=== PATIENT | male | born 1965 | race Caucasian/White ===

== ENCOUNTER 2021-04-17 05:43 | Observation (INO) ==
--- NOTE | 2021-03-31 16:25 | PAT Medication Instructions ---
Medication Instructions Date of Service March 31, 2021 Home Medications Ca carb-Ca gluc-Mg ox-Mg gluco [Calcium Magnesium] 1 tab PO HS ascorbic acid (vitamin C) [Vitamin C] 500 mg PO QAM diltiazem HCl 240 mg PO QAM gabapentin 100 mg PO HS glipizide 5 mg PO QAM lisinopril 20 mg PO QAM metformin 1,000 mg PO BID multivitamin 1 tab PO QAM omeprazole 20 mg PO QAM rosuvastatin 10 mg PO HS DO NOT take the morning of surgery ascorbic acid (vitamin C) [Vitamin C] 500 mg PO QAM glipizide 5 mg PO QAM lisinopril 20 mg PO QAM metformin 1,000 mg PO BID multivitamin 1 tab PO QAM Take morning of surgery With a small sip of water, OTHERWISE NOTHING TO EAT OR DRINK AFTER MIDNIGHT: diltiazem HCl 240 mg PO QAM omeprazole 20 mg PO QAM Take evening before surgery Ca carb-Ca gluc-Mg ox-Mg gluco [Calcium Magnesium] 1 tab PO HS gabapentin 100 mg PO HS metformin 1,000 mg PO BID rosuvastatin 10 mg PO HS Other Notes If you have any questions please call us at [phone] or [phone] or [phone] or [phone]
--- NOTE | 2021-04-03 14:48 | Anesthesiology Consultation ---
Date of Service April 03, 2021 Assessment & Plan (1) Encounter for pre-operative examination: - Cardiology note (04/04/21): "intermediate cardiac risk" - COVID screening: Per assessment on 04/03: Travel screen negative, no known COVID-19 positive contacts or current COVID-19 related symptoms. Surgeon arranging preop COVID testing. Awaiting results. - Check [facility] AM DOS Chart Review Chart Review: Acceptable Risk for Surgery (pending evaluation AM DOS) and Patient seen in Pre Admission Testing Teaching & Discussion Pre-Anesthesia Teaching/Discussion Notes: Instructed NPO after midnight before surgery,except medications with 15 cc of water. Medication instructions provided according to the PAT guidelines. History Surgery Operation Date: 04/17/21 13:40 Proposed Procedures p C5-C7 Anterior Cervical Discectomy and Fusion, *Spinal Cord Monitoring* - John Sterling DO Height/Weight Height: 5 ft 9 in Weight: 119.7 kg Allergies Allergy/AdvReac Type Severity Reaction Status Date / Time No Known Allergies Allergy Verified 03/30/21 08:43 Medications Home Medications Medication Instructions Recorded Confirmed Last Taken Ca carb-Ca gluc-Mg ox-Mg gluco 1 tab PO HS 03/30/21 03/30/21 Unknown [Calcium Magnesium] ascorbic acid (vitamin C) [Vitamin 500 mg PO QAM 03/30/21 03/30/21 Unknown C] diltiazem HCl 240 mg PO QAM 03/30/21 03/30/21 Unknown gabapentin 100 mg PO HS 03/30/21 03/30/21 Unknown glipizide 5 mg PO QAM 03/30/21 03/30/21 Unknown lisinopril 20 mg PO QAM 03/30/21 03/30/21 Unknown metformin 1,000 mg PO BID 03/30/21 03/30/21 Unknown multivitamin 1 tab PO QAM 03/30/21 03/30/21 Unknown omeprazole 20 mg PO QAM 03/30/21 03/30/21 Unknown rosuvastatin 10 mg PO HS 03/30/21 03/30/21 Unknown Past Medical History Medical History Cervical spinal stenosis Diabetes mellitus, type 2 NIDDM Fatty liver GERD (gastroesophageal reflux disease) History of COVID-19 09/16 (congestion) > resolved Hyperlipidemia Hypertension Irregular heart beat Follows with [facility] Obesity Restless leg syndrome Sleep apnea CPAP Exercise / Class Metabolic Activity II 4-5 Yardwork/Stairs/Walk up hill Past Family History Family History Mother Family history of diabetes mellitus Brother Family history of diabetes mellitus Other No family history of adverse response to anesthesia Past Surgical History Surgical History H/O shoulder surgery Right History of arthroscopy Left knee History of cholecystectomy History of colonoscopy History of herniorrhaphy Inguinal History of surgery on arm Left bicep repair [place] teeth removed Past Anesthesia History No Hx of Anesthesia Complications (except PONV) and No Family Hx of Anesthesia Complications History of PONV No Hx of Motion Sickness and History of PONV STOP BANG Total 7 Social History Smoking Status: Never smoker Do You Dip or Chew Tobacco: No Hx Alcohol Use: No Hx Substance Use: No substance use type: does not use Review of Systems Patient denies chest pain, shortness of breath, dyspnea on exertion, fever, chills, cough, wheezing, palpitations. Physical Exam Vital Signs VITALS BP 118/73 P 71 TEMP SP02 95%RA RESP 16 PHYSICAL Full cervical extension range of motion (+ cervicalgia with extension). Full TMJ range of motion. TMD 4 finger breaths Mallampati Score 2 Dentition: intact, + cap Lungs: clear throughout to auscultation Cardiac: regular rate and rhythm, no murmurs noted Spine: normal Carotid arteries: negative bruit Extremities: no edema Lab Results Anesthesia Preop Results Results Anesthesia Widget: WBC 8.18 K/uL (4.8-10.8) 04/03/21 Hgb 15.4 g/dL (14.0-18.0) 04/03/21 Hct 44.0 % (42-52) 04/03/21 Plt 237 K/uL (130-400) 04/03/21 Na 139 mmol/L (136-145) 04/03/21 K 4.4 mmol/L (3.5-5.1) 04/03/21 Cl 106 mmol/L (98-107) 04/03/21 CO2 26 mmol/L (21-32) 04/03/21 BUN 17 mg/dl (7-18) 04/03/21 Creat 1.25 mg/dl (0.6-1.4) 04/03/21 Glucose Level 86 mg/dl (70-99) 04/03/21 PT 10.4 Seconds (9.0-12.0) 04/03/21 PTT 25.9 Seconds (21.0-31.0) 04/03/21 INR 1.0 (0.9-1.1) 04/03/21 HA1c 7.3 % (4.5-5.6) H 04/03/21 Urine Color Yellow 04/03/21 Urine Appearance Clear (Clear) 04/03/21 Urine pH 6.5 (4.5-7.5) 04/03/21 Urine Specific [place] 1.016 (1.000-1.030) 04/03/21 Urine Protein Negative (Negative) 04/03/21 Urine Glucose (UA) Negative (Negative) 04/03/21 Urine Ketones Negative (Negative) 04/03/21 Urine Blood Negative (Negative) 04/03/21 Urine Nitrite Negative (Negative) 04/03/21 Urine Bilirubin Negative (Negative) 04/03/21 Urine Urobilinogen Negative (Negative) 04/03/21 Urine Leukocyte Esterase Negative (Negative) 04/03/21 Blood Type B Positive 04/03/21 Antibody Screen NEGATIVE 04/03/21 Testing Electrocardiogram Date: 04/03/21 Normal sinus rhythm at 73 bpm. Rightward axis. Chest X-Ray Date: 04/03/21 FINDINGS: Cardiomediastinal and hilar silhouettes are within normal limits. No pneumothorax, pleural effusion, airspace consolidation or overt pulmonary edema. Prior resection of the distal right clavicle. Cholecystectomy. Nipple shadows project over the lung bases. IMPRESSION: No acute process. Echocardiogram Date: 11/26/19 EF 60%. No regional wall motion abnormality. Mild biatrial enlargement. Mild RVE. Mild AV sclerosis. Mild mitral valve thickening. PASP 26 to 31 mmHg. Grade 1 diastolic dysfunction. Stress Test Date: 11/26/19 Type: nuclear (Lexiscan) Based upon EKG criteria, this test is negative. Based upon nuclear imaging findings there is mild inferior wall ischemia. EF 70%. Per cardiology note 01/12/20, nuclear stress test reviewed. Reviewed options with patient and patient preferred medical management at that time. Patient subsequently had preop cardiac risk assessment in which cardiology classified patient as "intermediate cardiac risk" per 04/04/21 note. Patient reports good functional status and denies cardiopulmonary complaints at PAT visit 04/03/21*
[2021-04-17] MEDS ORDERED: ceFAZolin 2000MG 2,000 MG/15 ML SYR IV SCH (06:00)
[2021-04-17] MEDS ORDERED: ACETAMINOPHEN 500 MG TAB PO SCH (06:00)
[2021-04-17] MEDS ORDERED: LR 15ML/HR IV SCH (06:00)
[2021-04-17] MEDS ORDERED: CeleBREX 200 MG CAP PO SCH (06:00)
[2021-04-17] MEDS ORDERED: GABAPENTIN 600 MG DOSE PO SCH (06:00)
[2021-04-17] MEDS ORDERED: ATROPINE SULFATE 0.1 MG/ML 10ML SYR IV PRN (07:07)
[2021-04-17] MEDS ORDERED: ONDANSETRON INJ 2 MG/ML 2 ML VIAL IV PRN ×2 (07:07→11:10)
[2021-04-17] MEDS ORDERED: ePHEDrine sulfate 50 MG/ML AMP IV PRN (07:07)
[2021-04-17] MEDS ORDERED: fentaNYL citrate 100 MCG/2 ML VIAL IV PRN (07:07)
[2021-04-17] MEDS ORDERED: SCOPOLAMINE 1 MG TDSY TD ONE ×2 (07:09→07:13)
--- NOTE | 2021-04-17 07:23 | History & Physical Bridge Note ---
Date of Service April 17, 2021 History & Physical Bridge Note I have examined the patient, reviewed the History & Physical and in the interval since the performance of the History & Physical I have noted the following changes of clinical significance: no changes noted
--- NOTE | 2021-04-17 07:25 | History & Physical Report ---
Date of Service April 17, 2021 Assessment & Plan (1) Herniation of cervical intervertebral disc with radiculopathy: Admission and Anticipated Discharge Date Admission Date: C5-C7 anterior cervical discectomy and fusion History of Present Illness Chief Complaint: Neck and arm pain Primary Care Provider: Jame Guzmán This is a 55-year-old male who presents with chronic persistent neck and arm pain. After failing stents course of nonoperative care is here for surgical invention. Allergies Allergy/AdvReac Type Severity Reaction Status Date / Time No Known Allergies Allergy Verified 04/17/21 07:00 Home Medications Medication Instructions Recorded Confirmed Type Ca carb-Ca gluc-Mg ox-Mg gluco 1 tab PO HS 03/30/21 04/17/21 History [Calcium Magnesium] ascorbic acid (vitamin C) [Vitamin 500 mg PO QAM 03/30/21 04/17/21 History C] diltiazem HCl 240 mg PO QAM 03/30/21 04/17/21 History gabapentin 100 mg PO HS 03/30/21 04/17/21 History glipizide 5 mg PO QAM 03/30/21 04/17/21 History lisinopril 20 mg PO QAM 03/30/21 04/17/21 History metformin 1,000 mg PO BID 03/30/21 04/17/21 History multivitamin 1 tab PO QAM 03/30/21 04/17/21 History omeprazole 20 mg PO QAM 03/30/21 04/17/21 History rosuvastatin 10 mg PO HS 03/30/21 04/17/21 History Past Med/Surg History Medical History Cervical spinal stenosis Diabetes mellitus, type 2 NIDDM Fatty liver GERD (gastroesophageal reflux disease) History of COVID-19 09/16 (congestion) > resolved Hyperlipidemia Hypertension Irregular heart beat Follows with [facility] Obesity Restless leg syndrome Sleep apnea CPAP Surgical History H/O shoulder surgery Right History of arthroscopy Left knee History of cholecystectomy History of colonoscopy History of herniorrhaphy Inguinal History of surgery on arm Left bicep repair Stites teeth removed Family History Mother Family history of diabetes mellitus Brother Family history of diabetes mellitus Other No family history of adverse response to anesthesia Social History Smoking Status: Never smoker Second Hand Exposure: No; Do You Dip or Chew Tobacco: No; Hx Alcohol Use: No Hx Substance Use: No Preferred Language: Peruvian Control Manager Required: No Beliefs That Will Affect Care: None Current Living Situation: Spouse Feels Safe at Home: Yes Safety Concerns: Feels Safe At This Time Assistive Devices: CPAP and Glasses Physical Exam Physical Exam: Patient is alert and oriented Heart regular rhythm Lungs clear to auscultation Results & Data ([facility]) Vital Signs (Past 12 Hours) Vital Signs Temp Pulse Resp BP Pulse Ox 04/17/21 06:49 36.8 C 87 18 146/84 H 94
[2021-04-17] MEDS ORDERED: fentaNYL citrate 100 MCG/2 ML VIAL ONE ×2 (07:33→08:03)
[2021-04-17] MEDS ORDERED: GLYCOPYRROLATE 0.2 MG/ML VIAL ONE ×2 (07:33→08:59)
[2021-04-17] MEDS ORDERED: HYDROmorphone INJ 2 MG/ML SYR/VIAL ONE (07:33)
[2021-04-17] MEDS ORDERED: DEXAMETHASONE SOD INJ 4 MG/ML VIAL ONE (07:33)
[2021-04-17] MEDS ORDERED: LIDOCAINE 2% 2 ML VIAL/AMP(20MG/ML) INFIL ONE (07:33)
[2021-04-17] MEDS ORDERED: PROPOFOL IV EMULSION 10 MG/ML 20 ML VIAL IV ONE (07:33)
[2021-04-17] MEDS ORDERED: NEOSTIGMINE METHYLSULFATE 1 MG/ML 10ML VIAL ONE (07:33)
[2021-04-17] MEDS ORDERED: ONDANSETRON INJ 2 MG/ML 2 ML VIAL ONE ×2 (07:33→08:58)
[2021-04-17] MEDS ORDERED: MIDAZOLAM HCL 1 MG/ML 2ML VIAL ONE (07:33)
[2021-04-17] MEDS ORDERED: ROCURONIUM BROMIDE 10 MG/ML 5 ML VIAL IV ONE (08:36)
[2021-04-17] MEDS ORDERED: PHENYLEPHRINE 100MCG/ML 5ML SYR ONE (08:36)
[2021-04-17] MEDS ORDERED: SUCCINYLCHOLINE CHLORIDE 20 MG/ML 10 ML VIAL IV ONE (08:36)
[2021-04-17] MEDS ORDERED: LARYING-O-JET KIT (LTA) ONE (08:36)
[2021-04-17] MEDS ORDERED: FLOSEAL HEMOSTATIC MATRIX 10ML TOP ONE (08:52)
[2021-04-17] MEDS ORDERED: PROPOFOL IV EMULSION 10 MG/ML 100 ML VIAL IV ONE (09:10)
--- NOTE | 2021-04-17 09:27 | Operative Report ---
Post Operative Report Pre & Post Diagnosis Operation Date: 04/17/21 07:45 Pre-Op Diagnosis: Cervical spinal stenosis with radiculopathy Post-Op Diagnosis: Same I identified the patient and participated in the time-out.: Yes Procedure Operation Date: 04/17/21 07:45 Actual Procedures #1 anterior cervical discectomy with bilateral foraminotomies C5-6 and C6-7. #2 intracervical arthrodesis C5-6 and C6-7. #3 placement of 9 mm Spira cage filled with I factor at C5-6 and an 8 mm cage filled with I factor at C6-C7. #4 application of gonzalez plate and screws from C5-C7. Surgeon John Sterling, DO Dehydration Plant Operator Romy Carey Estimated Blood Loss 10 Findings See Below The patient is 5 foot 9 inches tall weighing over 118 kg with a BMI in excess of 38. Patient's body habitus did create significant technical difficulty from positioning to exposure adding at least 50% increase to the operative time. Specimens None Indications This is a 55-year-old male who presents with above-mentioned diagnosis after failing stents course of nonoperative care is here for the above-mentioned procedure. Description of Procedure Patient was met with identified informed consent obtained. Patient was then taken to the operative suite underwent a patient placed in spine position just table head Trammell velazquez. All bony prominences well-padded eyes inspected to ensure no external pressure placed upon the. This point the anterior cervical spine was prepped and draped in a sterile fashion. The assistance of fluoroscopy identified the C6 vertebral body and a transverse incision was placed along the right anterior aspect of the cervical spinal lines region. Sharp dissection with the assistance of bipolar electrocautery as well down to and exposing the anterior cervical spine from C5-C7. Several 10 retractors placed. Then performed a complete discectomy of C5-C6 out to the uncovertebral joints bilaterally. Marland distracting pins were then placed to assist with visualization. I removed all posterior annular fibers longitudinal ligament bilateral foraminotomies performed. I then placed a 9 mm Spira cage filled with I factor into position. Then proceeded to C6-C7. Again complete discectomy performed out to the uncovertebral joints bilaterally. Marland distracting pins again utilized. Removed all posterior annular fibers longitudinal ligament bilateral foraminotomies performed. Endplates were then burred to subcortically bone and a 8 mm spiral cage filled with I factor tapped in position. All anterior osteophytes were then burred to a smooth cortical surface and a 5 complete screws applied with the assistance of fluoroscopy. The incision was then copiously irrigated explored to ensure no damage to surrounding structures remaining bleeding. 10 round MAYI drain inserted. The incision was then closed with 2 Vicryl in a fashion of 4 Monocryl for final skin closure. Steri-Strip sterile dressings placed. Patient waken taken to PACU stable condition. Please note spinal cord monitoring was utilized at the procedure no changes noted. Margarita Carey was present at the entire surgery involved the patient positioning complex portions of the surgery and final skin closure. I attest to the content of the Intraoperative Record and any orders documented therein. Any exceptions are noted below.
--- NOTE | 2021-04-17 10:24 | Fluoroscopy Report ---
FL cervical 2-3V CLINICAL HISTORY: ACDF C5-C7 COMPARISON STUDY: None FLUOROSCOPY TIME: 17 second. NUMBER OF FLUOROSCOPIC IMAGES: 3 FINDINGS: Fluoroscopic images presented for review shows partially visualized cervical spine and placement of t he orthopedic metallic device in its lower region. Endotracheal tube is seen at the anatomical region of the trachea. IMPRESSION: As above. ACT 112: Negative or not required by law. The above report was generated using voice recognition software. It may contain grammatical, syntax o r spelling errors. Electronically signed by: Savita Montes De Oca DO 04/17/2021 10:23 AM
--- NOTE | 2021-04-17 10:34 | Anesthesiology Progress Note ---
Date of Service April 17, 2021 Anesthesia Post Procedure Vital Signs Vital Signs: Temp Pulse Pulse Resp BP Pulse Ox 04/17/21 10:25 75 20 141/83 H 94 04/17/21 10:15 74 12 147/91 H 96 04/17/21 10:05 75 12 138/86 95 04/17/21 09:55 82 12 147/83 H 93 04/17/21 09:47 96.8 F L 96 H 14 135/89 90 04/17/21 06:49 98.2 F 87 18 146/84 H 94 Transfer of Care Handoff Completed per policy Notes Mental Status: alert / awake / arousable and participated in evaluation Patient Amnestic to Procedure: Yes Nausea / Vomiting: adequately controlled Pain: adequately controlled Airway Patency, RR, SpO2: stable & adequate BP & HR: stable & adequate Hydration State: stable & adequate Anesthetic Complications: no major complications apparent and Pt Satisfied with anesthetic care
[2021-04-17] MEDS ORDERED: RACEPINEPHRINE 2.25% NEBU SOLN 0.5 ML VIAL INH PRN (11:10)
[2021-04-17] MEDS ORDERED: LORazepam 0.5 MG/1 ML VIAL IV PRN (11:10)
[2021-04-17] MEDS ORDERED: HYDROmorphone INJ 0.5 MG/0.5 ML SYR IV PRN (11:10)
[2021-04-17] MEDS ORDERED: dexAMETHasone 8 MG in SYRINGE 0 ML IV PRN (11:10)
[2021-04-17] MEDS ORDERED: diphenhydrAMINE Capsule 25 MG CAP PO PRN (11:10)
[2021-04-17] MEDS ORDERED: HYDROmorphone INJ 1 MG/ML SYRINGE IV PRN (11:10)
[2021-04-17] MEDS ORDERED: ONDANSETRON 4 MG OD TAB PO PRN (11:10)
[2021-04-17] MEDS ORDERED: LORazepam 0.5 MG TAB PO PRN (11:10)
[2021-04-17] MEDS ORDERED: METOCLOPRAMIDE HCL INJ 5 MG/ML 2 ML VIAL IV PRN (11:10)
[2021-04-17] MEDS ORDERED: PROMETHAZINE HCL 12.5 MG in SODIUM CHLORIDE 0.9% 50 ML IV PRN (11:10)
[2021-04-17] MEDS ORDERED: traMADol HCL 50 MG TABLET PO PRN (11:10)
[2021-04-17] MEDS ORDERED: FAMOTIDINE 20 MG TAB PO PRN (11:10)
[2021-04-17] MEDS ORDERED: hydrOXYzine HCl 25 MG TAB PO PRN (11:10)
[2021-04-17] MEDS ORDERED: ALUMINUM/MAGNESIUM SUSP 30 ML UDC PO PRN (11:10)
[2021-04-17] MEDS ORDERED: SOD PHOSPHATE/SOD BIPHOSPHATE ENEMA 132 ML BTL PR PRN (11:10)
[2021-04-17] MEDS ORDERED: NALOXONE HCL 0.4 MG/1 ML VIAL/CARP IV PRN (11:10)
[2021-04-17] MEDS ORDERED: ACETAMINOPHEN 1,000 MG/100 ML VIAL IV PRN (11:10)
[2021-04-17] MEDS ORDERED: DO NOT ADMINISTER PNEUMOCOCCAL VACCINE PRN (11:10)
[2021-04-17] MEDS ORDERED: DO NOT ADMINISTER FLU VACCINE PRN (11:10)
[2021-04-17] MEDS ORDERED: MAGNESIUM HYDROXIDE SUSP 30 ML UDC PO PRN (11:10)
[2021-04-17] MEDS: SODIUM CHLORIDE 0.9% 1000ML 1,000 ML IV SCH ×2 (11:42→17:42)
[2021-04-17] MEDS ORDERED: GLUCOSE 40% GEL 15 GM TUBE PO PRN (12:15)
[2021-04-17] MEDS ORDERED: INSULIN ASPART 100 UNITS/ML 3 ML PEN SC ONE (12:15)
[2021-04-17] MEDS ORDERED: GLUCOSE 10 TABS/TUBE PO PRN (12:15)
[2021-04-17] MEDS ORDERED: DEXTROSE 50% 50 ML SYRINGE IV PRN (12:15)
[2021-04-17] MEDS ORDERED: GLUCAGON FOR INJ 1 MG VIAL IM PRN (12:15)
[2021-04-17] MEDS ORDERED: CARBOHYDRATES FOR HYPOGLYCEMIA PO PRN (12:15)
[2021-04-17] MEDS ORDERED: PHARMACY GLYCEMIC MGMT CONSULT PRN (12:40)
[2021-04-17] MEDS ORDERED: NovoLIN-N (NPH) PER UNIT CHARGE SQ ONE (12:45)
[2021-04-17] MEDS: oxyCODONE HCL IR 5 MG TAB (IMMEDIATE RELEASE) PO PRN ×2 (14:42→18:42)
--- NOTE | 2021-04-17 14:42 | Hospitalist Consultation ---
Date of Consultation April 17, 2021 Assessment & Plan (1) Herniation of cervical intervertebral disc with radiculopathy: POD#0 C5-C6, C6-C7 ACDF Mr. Corbett is a 55 year old male with a history of Type 2 Diabetes Mellitus, Hypertension, Hyperlipidemia, Obesity, Restless Leg Syndrome, Sleep Apnea on CPAP, and Cervical Spinal Stenosis s/p ACDF C5-C6, C6-C7 earlier today with Dr. Volodymyr Sterling. [facility] Hospitalists were consulted for post-op medical management. Patient has some pain at the base of his neck with movements, but otherwise his surgical pain is very well controlled. He denies any radiation of discomfort into his arms. He specifically denies any numbness, tingling, or weakness of either upper extremity or his hands. He denies any postoperative nausea or vomiting. He is tolerating the cervical collar without difficulty. Patient offers no other complaints or concerns. Patient is hemodynamically stable following his spine surgery. -- Analgesic for pain control as per Dr. Sterling. -- Ongoing DVT prophylaxis. -- Cervical collar. -- Monitor daily labs. (2) Type 2 diabetes mellitus: -- Monitor G qAC HS. -- Novolog SSI ordered. -- Restart Glipzide and Metformin at discharge. -- Carb consistent, diabetic diet. (3) Hypertension, essential: -- Blood pressure appears to be well controlled. -- Continue Diltiazem CD 240 mg daily. -- Continue Lisinopril 20 mg daily. -- Monitor VS as per protocol. (4) Hyperlipidemia: -- Continue Rosuvastatin 10 mg qHS. (5) Sleep apnea: Patient did not bring his CPAP with him. Supervising Physician Co-Signing Physician Notes Reviewed PA-C notes, discussed at length. I agree with his assessment and plan. This is a 55-year-old female with multiple medical problems that had an ACDF C5-C6 and C6-C7 with Dr. Sterling. Dr. Sterling consult our service for medical management. Medications were reviewed, plan to restart oral hypoglycemics at discharge. Hypertension acceptable on current medications. We will continue to follow blood patient remains here in the hospital. Thank you for the consult. History of Present Illness Reason for Consultation: -- Post-op Medical Management. -- s/p ACDF C5-C6, C6-C7. Requesting Physician: John M Hallie, DO Attending Physician: Martinez Umanzor DO History of Present Illness Mr. Corbett is a 55 year old male with a history of Type 2 Diabetes Mellitus, Hypertension, Hyperlipidemia, Obesity, Restless Leg Syndrome, Sleep Apnea on CPAP, and Cervical Spinal Stenosis s/p ACDF C5-C6, C6-C7 earlier today with Dr. Volodymyr Sterling. [facility] Hospitalists were consulted for post-op medical management. Patient has some pain at the base of his neck with movements, but otherwise his surgical pain is very well controlled. He denies any radiation of discomfort into his arms. He specifically denies any numbness, tingling, or weakness of either upper extremity or his hands. He denies any postoperative nausea or vomiting. He is tolerating the cervical collar without difficulty. Patient offers no other complaints or concerns. Patient specifically denies any history of exertional chest pain, heaviness, tightness, pressure, discomfort. He denies any exertional neck, jaw, back, or arm pain. He denies any shortness of breath, unusual dyspnea on exertion, cough, or sputum production. He denies any recent palpitations. No history of syncope or near-syncope. Patient had an Echocardiogram done a year and a half ago in this showed normal LV size and systolic function, mild aortic valve sclerosis without stenosis, and grade 1 LV diastolic dysfunction. He also had a Nuclear Stress Test 11/26/2019 which showed no EKG changes, but imaging suggested inferior wall ischemia. Allergies Allergy/AdvReac Type Severity Reaction Status Date / Time No Known Allergies Allergy Verified 04/17/21 07:00 Home Medications Medication Instructions Recorded Confirmed Type Ca carb-Ca gluc-Mg ox-Mg gluco 1 tab PO HS 03/30/21 04/17/21 History [Calcium Magnesium] ascorbic acid (vitamin C) [Vitamin 500 mg PO QAM 03/30/21 04/17/21 History C] diltiazem HCl 240 mg PO QAM 03/30/21 04/17/21 History gabapentin 100 mg PO HS 03/30/21 04/17/21 History glipizide 5 mg PO QAM 03/30/21 04/17/21 History lisinopril 20 mg PO QAM 03/30/21 04/17/21 History metformin 1,000 mg PO BID 03/30/21 04/17/21 History multivitamin 1 tab PO QAM 03/30/21 04/17/21 History omeprazole 20 mg PO QAM 03/30/21 04/17/21 History rosuvastatin 10 mg PO HS 03/30/21 04/17/21 History oxycodone 5 mg PO Q6H PRN #20 tab 04/17/21 Rx tramadol 50 mg PO Q6H PRN #20 tab 04/17/21 Rx Patient History Medical History Cervical spinal stenosis Diabetes mellitus, type 2 NIDDM Fatty liver GERD (gastroesophageal reflux disease) History of COVID-19 09/16 (congestion) > resolved Hyperlipidemia Hypertension Irregular heart beat Follows with [facility] Obesity Restless leg syndrome Sleep apnea CPAP Surgical History H/O shoulder surgery Right History of arthroscopy Left knee History of cholecystectomy History of colonoscopy History of herniorrhaphy Inguinal History of surgery on arm Left bicep repair [place] teeth removed Family History Mother Family history of diabetes mellitus Brother Family history of diabetes mellitus Other No family history of adverse response to anesthesia Social History Smoking Status: Never smoker Second Hand Exposure: No; Do You Dip or Chew Tobacco: No; Hx Alcohol Use: No Hx Substance Use: No Preferred Language: Cameroonian Sales Ambassador Required: No Beliefs That Will Affect Care: None Current Living Situation: Spouse Feels Safe at Home: Yes Safety Concerns: Feels Safe At This Time Assistive Devices: CPAP and Glasses Review of Systems Review of Systems: All systems reviewed & are unremarkable except as noted in Subjective Physical Exam Physical Exam: GENERAL: Patient in no acute distress. HEENT: Head is atraumatic, normocephalic. EOM's intact. Facies symmetric. No perioral cyanosis. NECK: Cervical collar in place. CHEST/LUNGS: Clear to auscultation throughout all lung almeida. No wheezes, rales, or crackles. CVS: S1 and S2 are regular without obvious murmurs, gallops, or rubs. PMI is nonpalpable. No lifts, heaves, or thrills. No abdominal aortic or renal bruits. ABDOMINAL EXAM: Bowel sounds are present. No masses, organomegaly, or tenderness. EXTREMITIES: No clubbing or cyanosis. No edema. Intact posterior tibial and radial pulses bilaterally. SCD's in place, compression stockings in place. NEUROLOGIC EXAM: Patient is awake, alert, and oriented. Pleasant and cooperative. Answers questions appropriately. Speech is clear. Sensation intact to light touch over bilateral upper and lower extremities. Beam Machine Operator strength is equal bilaterally. Results & Data Results & Data ([facility]) Vital Signs (Past 12 Hours) Vital Signs Temp Pulse Pulse Pulse Resp BP Pulse Ox 04/17/21 13:12 36.5 C 88 16 124/76 95 04/17/21 12:10 36.7 C 75 14 124/81 97 04/17/21 11:38 36.4 C L 84 14 114/77 95 04/17/21 11:25 79 16 96 04/17/21 11:10 36.2 C L 82 14 158/73 H 95 04/17/21 11:00 78 20 147/84 H 96 04/17/21 10:55 79 20 147/80 H 95 04/17/21 10:45 36.5 C 76 20 140/83 94 04/17/21 10:35 73 20 140/86 94 04/17/21 10:25 75 20 141/83 H 94 04/17/21 10:15 74 12 147/91 H 96 04/17/21 10:05 75 12 138/86 95 04/17/21 09:55 82 12 147/83 H 93 04/17/21 09:47 36.0 C L 96 H 14 135/89 90 04/17/21 06:49 36.8 C 87 18 146/84 H 94 Laboratory Results Laboratory Results - last 24 hr 04/17/21 04/17/21 04/17/21 06:08 06:36 06:36 POC Glucose 147 H COVID-19 Eval Order Covid19 [facility] SARS-CoV-2, RNA, NAAT NEGATIVE 04/17/21 04/17/21 09:57 11:48 POC Glucose 168 H 247 H COVID-19 Eval Order SARS-CoV-2, RNA, NAAT Diagnostic Findings C-spine Fluoroscopy 04/17/21: -- Fluoroscopic images presented for review shows partially visualized cervical spine and placement of the orthopedic metallic device in its lower region. -- Endotracheal tube is seen at the anatomical region of the trachea. Medications Administered Medications Ca carb-Ca gluc-Mg ox-Mg gluco [Calcium Magnesium] 1 tab PO HS 03/30/21 [History Confirmed 04/17/21] ascorbic acid (vitamin C) [Vitamin C] 500 mg PO QAM 03/30/21 [History Confirmed 04/17/21] diltiazem HCl 240 mg PO QAM 03/30/21 [History Confirmed 04/17/21] gabapentin 100 mg PO HS 03/30/21 [History Confirmed 04/17/21] glipizide 5 mg PO QAM 03/30/21 [History Confirmed 04/17/21] lisinopril 20 mg PO QAM 03/30/21 [History Confirmed 04/17/21] metformin 1,000 mg PO BID 03/30/21 [History Confirmed 04/17/21] multivitamin 1 tab PO QAM 03/30/21 [History Confirmed 04/17/21] omeprazole 20 mg PO QAM 03/30/21 [History Confirmed 04/17/21] rosuvastatin 10 mg PO HS 03/30/21 [History Confirmed 04/17/21] oxycodone 5 mg PO Q6H PRN #20 tab 04/17/21 [Rx] tramadol 50 mg PO Q6H PRN #20 tab 04/17/21 [Rx] Home Medications Acetaminophen (Acetaminophen 500 Mg Tab) 1,000 mg PO PREOP ALLA Stop: 04/17/21 18:00 Last Admin: 04/17/21 07:10 Dose: 1,000 mg Documented by: Acetaminophen (Acetaminophen 500 Mg Tab) 1,000 mg PO Q8H PRN PRN Reason: MILD Pain Scale 1,2,3 & Pre PT Stop: 05/17/21 11:09 Al Hydrox/Mg Hydrox/Simethicone (Aluminum/Magnesium Susp 30 Ml Udc) 30 ml PO Q6H PRN PRN Reason: Dyspepsia Stop: 05/17/21 11:09 Ascorbic Acid (Ascorbic Acid 500 Mg Tab) 500 mg PO QAM ALLA Stop: 05/18/21 08:59 Bisacodyl (Bisacodyl 10 Mg Supp) 10 mg MA DAILY PRN PRN Reason: Constipation Stop: 05/19/21 09:27 Celecoxib (Celebrex 200 Mg Cap) 200 mg PO PREOP ALLA Stop: 04/17/21 18:00 Last Admin: 04/17/21 07:10 Dose: 200 mg Documented by: Dextrose (Dextrose 50% 50 Ml Syringe) 25 - 50 ml IV UD PRN; Protocol PRN Reason: Hypoglycemia Protocol Stop: 05/17/21 12:14 Diltiazem HCl (Diltiazem Hcl 240 Mg Capcr) 240 mg PO QAM ALLA Stop: 05/18/21 08:59 Diphenhydramine HCl (Diphenhydramine Capsule 25 Mg Cap) 25 mg PO Q6H PRN PRN Reason: Allergic Rhinitis/Insomnia Stop: 05/17/21 11:09 Epinephrine (Racepinephrine 2.25% Nebu Soln 0.5 Ml Vial) 0.5 ml INH NOW PRN PRN Reason: if stridor present Famotidine (Famotidine 20 Mg Tab) 20 mg PO Q12H PRN PRN Reason: Dyspepsia Stop: 05/17/21 11:09 Gabapentin (Gabapentin 600 Mg Dose) 600 mg PO PREOP ALLA Stop: 04/17/21 18:00 Last Admin: 04/17/21 07:10 Dose: 600 mg Documented by: Gabapentin (Gabapentin 100 Mg Cap) 100 mg PO HS ALLA Stop: 05/17/21 20:59 Glucagon (Glucagon For Inj 1 Mg Vial) 1 mg IM UD PRN; Protocol PRN Reason: Hypoglycemia Protocol Stop: 05/17/21 12:14 Glucose (Glucose 40% Gel 15 Gm Tube) 15 - 30 gm PO UD PRN; Protocol PRN Reason: Hypoglycemia Protocol Stop: 05/17/21 12:14 Glucose (Glucose 10 Tabs/Tube) 4 - 8 tabs PO UD PRN; Protocol PRN Reason: Hypoglycemia Protocol Stop: 05/17/21 12:14 Hydromorphone HCl (Hydromorphone Inj 0.5 Mg/0.5 Ml Syr) 0.5 mg IV Q3H PRN PRN Reason: MOD pain (scale 4-6) & Pre PT Stop: 05/01/21 11:09 Last Admin: 04/17/21 11:41 Dose: 0.5 mg Documented by: Hydromorphone HCl (Hydromorphone Inj 1 Mg/Ml Syringe) 1 mg IV Q3H PRN PRN Reason: severe pain (scale 7-10) Stop: 05/01/21 11:09 Hydroxyzine HCl (Hydroxyzine Hcl 25 Mg Tab) 25 mg PO Q8H PRN PRN Reason: Anxiety Stop: 05/17/21 11:09 Lactated Ringer's (Lr) 1,000 mls @ 15 mls/hr IV .Q24H ALLA Stop: 04/18/21 05:59 Last Infusion: 04/17/21 07:42 Dose: Infused Documented by: Cefazolin Sodium (Ancef 2000mg) 2,000 mg in 15 mls @ 3.75 mls/min IV PREOP ALLA; Protocol Stop: 04/17/21 18:00 Last Admin: 04/17/21 11:42 Dose: Not Given Documented by: Dexamethasone 8 mg/ Syringe 2 mls @ 1 mls/min IV NOW PRN PRN Reason: stridor Sodium Chloride (Nss 1000ml) 1,000 mls @ 150 mls/hr IV .Q6H40M ALLA Stop: 05/17/21 11:09 Last Admin: 04/17/21 11:42 Dose: 150 mls/hr Documented by: Acetaminophen (Ofirmev) 1,000 mg in 100 mls @ 400 mls/hr IV Q8H PRN PRN Reason: Pain Rating 1-3 & Pre PT Stop: 04/18/21 09:28 Lorazepam (Ativan) 0.5 mg in 1 mls @ 1 mls/min IV Q8H PRN PRN Reason: Sedation/Anxiety Stop: 05/17/21 11:09 Cefazolin Sodium (Ancef 2000mg) 2,000 mg in 15 mls @ 3.75 mls/min IV Q8H ALLA; Protocol Stop: 04/18/21 01:03 Promethazine HCl 12.5 mg/ (Sodium Chloride) 50.5 mls @ 202 mls/hr IV Q6H PRN PRN Reason: Nausea &/or Vomiting Stop: 05/17/21 11:09 Influenza Virus Vaccine Quadrival (Do Not Administer Flu Vaccine) 1 ea N/A PRN PRN PRN Reason: Notification Stop: 05/17/21 11:09 Insulin Aspart (Insulin Aspart 100 Units/Ml 3 Ml Pen) 0 units SC ACHS [facility] Stop: 05/17/21 16:29 Lisinopril (Lisinopril 20 Mg Tab) 20 mg PO QAM [facility] Stop: 05/18/21 08:59 Lorazepam (Lorazepam 0.5 Mg Tab) 0.5 mg PO Q8H PRN PRN Reason: sedation/anxiety Stop: 05/17/21 11:09 Magnesium Hydroxide (Magnesium Hydroxide Susp 30 Ml Udc) 30 ml PO Q24H PRN PRN Reason: Constipation Stop: 05/17/21 11:09 Metoclopramide HCl (Metoclopramide Hcl Inj 5 Mg/Ml 2 Ml Vial) 10 mg IV Q6H PRN PRN Reason: Nausea &/or Vomiting Stop: 05/17/21 11:09 Miscellaneous (Remove Transderm-Scop Patch) 1 ea N/A ONE ONE Stop: 04/20/21 06:01 Miscellaneous (Check Scopolamine Patch Placement) 1 ea N/A QS [facility] Stop: 04/20/21 05:59 Miscellaneous (Carbohydrates For Hypoglycemia ) 15 - 30 gm PO UD PRN PRN Reason: Hypoglycemia Treatment Stop: 05/17/21 12:14 Miscellaneous Information (Pharmacy Glycemic Mgmt Consult) 1 ea N/A UD PRN PRN Reason: Consult Stop: 05/17/21 12:39 [facility]ivit[facility] ([facility]amin Tab) [facility] Stop: 05/18/21 08:59 Naloxone HCl (Naloxone Hcl 0.4 Mg/1 Ml Vial/Carp) 0.1 mg IV Q5M PRN PRN Reason: Oversedation/respiratory dep Stop: 05/17/21 11:09 Ondansetron HCl (Ondansetron Inj 2 Mg/Ml 2 Ml Vial) 4 mg IV Q6H PRN PRN Reason: Nausea &/or Vomiting Stop: 05/17/21 11:09 Ondansetron HCl (Ondansetron 4 Mg Od Tab) 4 mg PO Q6H PRN PRN Reason: Nausea Stop: 05/17/21 11:09 Oxycodone HCl (Oxycodone Hcl Ir 5 Mg Tab (Immediate Release)) 5 - 10 mg PO Q4H PRN PRN Reason: Pain & Pre PT Stop: 05/01/21 11:09 Last Admin: 04/17/21 14:42 Dose: 5 mg Documented by: Pantoprazole Sodium (Pantoprazole 40 Mg Tab) 40 mg PO QAM ALLA Stop: 05/18/21 08:59 Pneumococcal Polyvalent Vaccine (Do Not Administer Pneumococcal Vaccine) 1 ea N/A PRN PRN PRN Reason: Notification Stop: 05/17/21 11:09 Polyethylene Glycol (Polyethylene (Miralax) 17 Gm Pack) 17 gm PO Q6 ALLA Stop: 05/18/21 05:59 Rosuvastatin Calcium (Rosuvastatin Calcium 10 Mg Tab) 10 mg PO HS ALLA Stop: 05/17/21 20:59 Senna/Docusate Sodium (Docusate Sodium/Senna 50/8.6mg Tab) 2 tab PO HS ALLA Stop: 05/17/21 20:59 Sodium Biphosphate/Sodium Phosphate (Sod Phosphate/Sod Biphosphate Enema 132 Ml Btl) 132 ml MA ONE PRN PRN Reason: Constipation Stop: 05/17/21 11:09 Tramadol HCl (Tramadol Hcl 50 Mg Tablet) 50 - 100 mg PO Q4H PRN PRN Reason: Moderate-Severe pain & Pre PT Stop: 05/17/21 11:09 PG Care Time/CCT Total # of Minutes Spent Total Time Spent with Patient: Total time spent is greater than 50% in coordination of care (as documented) at patient's floor/unit and/or counseling patient:40 Coding Level of Care Code 29037 Inpt Consult Level 4 Diagnoses Herniation of cervical intervertebral disc with radiculopathy M50.10 Type 2 diabetes mellitus E11.9 Hypertension, essential I10 Hyperlipidemia E78.5 Sleep apnea G47.30 Time Spent (min) 55
--- NOTE | 2021-04-17 15:11 | Pharmacy Report ---
Pharmacy Glycemic Short Note 2 - Date of Service April 17, 2021 - Glycemic Short BSG Results (Last 24 hours): 04/17/21 04/17/21 04/17/21 06:08 09:57 11:48 POC Glucose 147 H 168 H 247 H OUTPATIENT ANTIDIABETIC REGIMEN: * glipizide 5 mg daily * metformin 1000 mg BID ASSESSMENT: * Mr Corbett is a 55 y/o M with a PMH of well-controlled T2DM on two oral medications who presents for spinal surgery. BSGs today are 147-168-247 mg/dL. Patient received 8 mg of dexamethasone in the OR. * Start NPH 0.4 units/kg x 1 (35 units) plus Lantus 25 units (weight-based stress of 1 full dose) at dinnertime to decrease overlap between two long acting insulins. Start Lantus scale tomorrow morning with weight-based dosing. * Novolog weight-based stress of 3 due to steroid use. * Hold oral medications. PLAN FOR INPATIENT GLYCEMIC CONTROL: * Hold outpatient oral diabetes medications * Basal insulin * NPH 35 units SQ x 1 * Lantus 25 units SQ x 1 then 15-25 units BID depending on blood sugar (15 units if BSG < 140 mg/dL, 20 units if BSG 140-180 mg/dL, and 25 units if BSG > 180 mg/dL). * Bolus insulin * NovoLog per scale ACHS or Q6hrs while NPO * Goal Range: Low 110 mg/dL - High 140 mg/dL * Correction Factor: 15 mg/dL/unit * Nutritional / Prandial insulin per carb ratio of 1 unit per 5 grams CHO consumed PLAN FOR DISCHARGE: * Patient's HbA1C is well controlled at baseline continue current home regimen.
[2021-04-17] MEDS: CHECK SCOPOLAMINE PATCH PLACEMENT SCH ×2 (15:37→22:55)
[2021-04-17] MEDS ORDERED: INSULIN GLARGINE SOLOSTAR 100 UNITS/ML 3 ML PEN SC ONE (16:30)
[2021-04-17] MEDS: INSULIN ASPART 100 UNITS/ML 3 ML PEN SC SCH ×2 (17:25→21:50)
[2021-04-17] MEDS: ceFAZolin 2000MG 2,000 MG/15 ML SYR IV SCH (17:43)
[2021-04-17] MEDS ORDERED: COUGH DROP (SUGAR FREE) LOZ 24 LOZ/1 BOX BUCCAL PRN (18:43)
[2021-04-17] MEDS: ACETAMINOPHEN 500 MG TAB PO PRN (20:20)
[2021-04-17] MEDS ORDERED: NON-FORMULARY MEDICATION (Ca Carb-Ca Gluc-Mg Ox-Mg Gluco [Calcium Magnesium] 500 mg calciu PO SCH (21:00)
[2021-04-17] MEDS ORDERED: GABAPENTIN 100 MG CAP PO SCH (21:00)
[2021-04-17] MEDS ORDERED: ROSUVASTATIN CALCIUM 10 MG TAB PO SCH (21:00)
[2021-04-17] MEDS ORDERED: DOCUSATE SODIUM/SENNA 50/8.6MG TAB PO SCH (21:00)
[2021-04-18] MEDS: ceFAZolin 2000MG 2,000 MG/15 ML SYR IV SCH (00:23)
[2021-04-18] MEDS: INSULIN ASPART 100 UNITS/ML 3 ML PEN SC SCH ×3 (00:24→08:40)
[2021-04-18] MEDS: oxyCODONE HCL IR 5 MG TAB (IMMEDIATE RELEASE) PO PRN ×2 (00:38→09:39)
[2021-04-18] MEDS ORDERED: POLYETHYLENE (MIRALAX) 17 GM PACK PO SCH (06:00)
[2021-04-18] MEDS: ACETAMINOPHEN 500 MG TAB PO PRN (07:13)
[2021-04-18] MEDS: CHECK SCOPOLAMINE PATCH PLACEMENT SCH (08:39)
[2021-04-18] MEDS ORDERED: MULTIVITAMIN TAB PO SCH (09:00)
[2021-04-18] MEDS ORDERED: lisinopril 20 MG TAB PO SCH (09:00)
[2021-04-18] MEDS ORDERED: PANTOprazole 40 MG TAB PO SCH (09:00)
[2021-04-18] MEDS ORDERED: ASCORBIC ACID 500 MG TAB PO SCH (09:00)
[2021-04-18] MEDS ORDERED: glipiZIDE 5 MG TAB PO SCH (09:00)
[2021-04-18] MEDS ORDERED: dilTIAZem HCL 240 MG CAPCR PO SCH (09:00)
[2021-04-18] MEDS ORDERED: INSULIN GLARGINE SOLOSTAR 100 UNITS/ML 3 ML PEN SC SCH (09:00)
--- NOTE | 2021-04-18 09:34 | Discharge Summary ---
Date of Service April 18, 2021 Admission HPI Per Admitting Provider This is a 55-year-old male who presents with chronic persistent neck and arm pain. After failing stents course of nonoperative care is here for surgical invention. Principal Diagnosis Cervical spinal stenosis with radiculopathy Discharge Data Allergies Allergy/AdvReac Type Severity Reaction Status Date / Time No Known Allergies Allergy Verified 04/17/21 07:00 Consultations 04/17/21 12:22 Consult Hospitalist Routine Procedures Performed Operation Date: 04/17/21 07:45 Actual Procedures p C5-C7 Anterior Cervical Discectomy and Fusion, *Spinal Cord Monitoring* - John Sterling DO Ordered Studies 04/17/21 07:45 FL cervical 2-3V Routine Hospital Course (1) Herniation of cervical intervertebral disc with radiculopathy: Patient went anterior cervical discectomy and fusion trial as well as taken to orthopedic for postoperative postop #1 he was swallowing well no hoarseness. Arm symptoms improved. Excellent strength testing. MAYI drain decreasing appropriately. Subsequent discharge home. Discharge orders instructions from the chart for further view. Total Time Total Time Spent Total Time Spent (In Minutes): 20 minutes Discharge Plan Discharge Items Patient Disposition: Home - Self-Care Reason For Visit: Spinal Stenosis, Cervical Region Discharge Diagnosis: Cervical spinal stenosis with radiculopathy Activity: As commented below Non-emergency contact: Primary Care Provider Call non-emergency contact if: you have any medication questions Follow-up/Referrals: Jame Guzmán [Primary Care Provider] - Diet: Regular Addtl Attending Provider Instructions: ACTIVITY RECOMMENDATIONS: SELF CARE INSTRUCTIONS AFTER CERVICAL FUSIONS 1. No smoking. Smoking drastically decreases the chance of a solid fusion. 2. No bending, lifting more than 5 pounds, or twisting (roll like a log when turning in bed). 3. You may shower 3 days after surgery. Thoroughly dry wound. Do not soak in the tub. 4. Cervical collar: Must be worn at all times including sleeping. You may remove the brace only to bath, eat and if you are sitting in a recliner. 5. Please walk as much as you can for exercise. Gradually increase the distance that you walk as your endurance increases. SPECIAL CARE INSTRUCTIONS: VERY IMPORTANT TO READ AND REVIEW A. Do not take any anti-inflammatory medications (i.e. Indocin, Advil, Aspirin, Naprosyn, Aleve, Motrin, etc.) as these may inhibit the chance of a solid fusion. Tylenol is okay to take. B. Your surgical incision has been closed with a cosmetic suture under the skin that will dissolve in about 6 weeks. In 14 days, you can use a pair of clean scissors and cut the suture that is left outside of the skin at the ends of your incision. C. Complications are uncommon, but please contact us if you have any signs or symptoms of: 1. wound infection (fever higher than 102.5 degrees F, redness, separation of wound, drainage, or increasing pain from the incision) 2. blood clots in legs (pain, swelling, redness and warmth in legs) 3. urinary tract infection (fever higher than 102.5 degrees, burning upon urination or increased frequency of urination) 4. nerve problems (inability to walk on your toes or heels, numbness, loss of bowel or bladder control) 5. any other symptoms that concern you. D. Please call the office at if you have any concerns or questions about your operation or recovery. MANAGING PAIN AFTER SPINAL SURGERY 1. Narcotic medication is intended for short-term use and will be provided for surgical pain. Surgical pain usually lasts for a period of 4-6 weeks. Narcotic medication includes Percocet, Vicodin, Darvocet, Tylenol #3 or Lortab. 2. Longer-term pain is more appropriately treated with non-narcotic medication such as Tylenol ES. 3. Muscle spasm is not appropriately treated with narcotics. Muscle relaxers such as Soma, Flexeril or Skelaxin can be used along with Tylenol ES. 4. Remember that we all live with some "aches and pains". This is not unusual or uncommon after an injury or as we get older. 5. We will provide appropriate medication within the normal guidelines of their prescribed use. We will also be very cautious and aware of potential abuse and extended duration of patients' medication needs. 6. Please allow 2-3 days to process refills. Prescriptions will not be mailed but must be picked up at the office. FOLLOW UP VISIT: Keep your scheduled follow-up appointment. Any questions, please call the office at . Pending Studies at Discharge: No Stand-Alone Forms: [employer], Smoking Cessation Medications and DC Order Prescriptions: New tramadol 50 mg tablet 50 mg PO Q6H PRN (Reason: pain, moderate) Qty: 20 RF: 0 oxycodone 5 mg tablet 5 mg PO Q6H PRN (Reason: pain, severe) Qty: 20 RF: 0 Continued multivitamin Tablet 1 tab PO QAM RF: 0 lisinopril 20 mg Tablet 20 mg PO QAM RF: 0 diltiazem HCl 240 mg Capsule,Extended Release 24 Hr 240 mg PO QAM RF: 0 ascorbic acid (vitamin C) [Vitamin C] 500 mg Tablet 500 mg PO QAM RF: 0 metformin 1,000 mg Tablet 1,000 mg PO BID RF: 0 omeprazole 20 mg Capsule,Delayed Release(Dr/Ec) 20 mg PO QAM RF: 0 gabapentin 100 mg Capsule 100 mg PO HS RF: 0 glipizide 5 mg Tablet 5 mg PO QAM RF: 0 rosuvastatin 10 mg Tablet 10 mg PO HS RF: 0 Calcium Magnesium 500 mg calcium -250 mg Tablet 1 tab PO HS RF: 0 Discharge Orders: Discharge Order (Routine); Ordered 04/18/21 Ordered By: John Sterling Admission Data Admit Date/Time: 04/17/21 10:07 Attending Provider: John Sterling Admit Provider: John Sterling Primary Care Provider: Jame Guzmán Other Providers: Real Muñoz
--- NOTE | 2021-04-18 09:49 | Pharmacy Report ---
Pharmacy Glycemic Short Note 2 - Date of Service April 18, 2021 - Glycemic Short BSG Results (Last 24 hours): 04/17/21 04/17/21 04/17/21 09:57 11:48 17:21 POC Glucose 168 H 247 H 181 H 04/17/21 04/17/21 04/18/21 20:41 23:57 04:25 POC Glucose 156 H 169 H 176 H 04/18/21 08:15 POC Glucose 146 H OUTPATIENT ANTIDIABETIC REGIMEN: * glipizide 5 mg daily * metformin 1000 mg BID ASSESSMENT: 04/18 * Pt has received 93 units of insulin over the past 24hrs * 25 units of basal with Lantus * 35 units of NPH for steroid induced hyperglycemia * 33 units of bolus with NovoLog * BSGs [phone] mg/dl * Steroid induced hyperglycemia resolved with insulin orders yesterday * Dexamethasone 8mg IV x 1 ordered again for this morning. Will give another dose of NPH to prevent steroid induced hyperglycemia. * Considered increasing the dose of NPH to maintain BSGs <150 mg/dl however NPH should work better since it is being given at the same time as the DXM rather than 5 hours later like yesterday (DXM given intra-op ~ 0730 and NPH given when pt arrived to the floor ~1315) Will titrate CF/CR if needed * Goal is to maintain BSG < 180 mg/dl (ideally <150 mg/dl) to prevent postop in fectious compilations and promote wound healing. 04/17 * Mr Corbett is a 55 y/o M with a PMH of well-controlled T2DM on two oral medications who presents for spinal surgery. BSGs today are 147-168-247 mg/dL. Patient received 8 mg of dexamethasone in the OR. * Start NPH 0.4 units/kg x 1 (35 units) plus Lantus 25 units (weight-based stress of 1 full dose) at dinnertime to decrease overlap between two long acting insulins. Start Lantus scale tomorrow morning with weight-based dosing. * Novolog weight-based stress of 3 due to steroid use. * Hold oral medications. PLAN FOR INPATIENT GLYCEMIC CONTROL: * Hold outpatient oral diabetes medications * Basal insulin * NPH 35 units SQ x 1 - give with dexamethasone today at 1000 * Lantus 25 units SQ x 1 then 15-25 units BID depending on blood sugar (15 units if BSG < 140 mg/dL, 20 units if BSG 140-180 mg/dL, and 25 units if BSG > 180 mg/dL). * Bolus insulin * NovoLog per scale ACHS or Q6hrs while NPO * Goal Range: Low 110 mg/dL - High 140 mg/dL * Correction Factor: 15 mg/dL/unit * Nutritional / Prandial insulin per carb ratio of 1 unit per 5 grams CHO consumed * Resume metformin 1 day prior to dc (but at least 24hrs post op) when pt tolerating PO and renal function WNL PLAN FOR DISCHARGE: * Patient's HbA1C is well controlled at baseline continue current home regimen.
[2021-04-18] MEDS ORDERED: dexAMETHasone 8 MG in SYRINGE 0 ML IV ONE (10:00)
[2021-04-18] MEDS ORDERED: NovoLIN-N (NPH) PER UNIT CHARGE SQ ONE (10:00)
[2021-04-19] MEDS ORDERED: bisacodyL 10 MG SUPP PR PRN (09:28)
== END 2021-04-18 11:00 | disposition home or self-care (01) ==
LOC: ASU 05:43 → 3E 10:07 → INTOOBSV 10:07

== ENCOUNTER 2023-03-18 07:27 | Inpatient (IN) ==
--- NOTE | 2023-02-15 14:59 | PAT Medication Instructions ---
Medication Instructions Date of Service February 15, 2023 Home Medications ascorbic acid (vitamin C) 500 mg tablet (Vitamin C) 500 mg PO QAM calcium carb-Ca gluc 500 mg calcium-magnesium ox-Mg gluc 250 mg tablet (Calcium Magnesium) 1 tab PO HS diltiazem HCl 240 mg capsule,24 hr,extended release 240 mg PO QAM gabapentin 100 mg capsule 100 mg PO HS glipizide 5 mg tablet 5 mg PO QAM lisinopril 20 mg tablet 20 mg PO QAM metformin 1,000 mg tablet 1,000 mg PO BID multivitamin 1 tab PO QAM omeprazole 20 mg capsule,delayed release 20 mg PO QAM rosuvastatin 10 mg tablet 10 mg PO HS gabapentin 300 mg capsule 600 mg PO HS DO NOT take the morning of surgery ascorbic acid (vitamin C) 500 mg tablet (Vitamin C) 500 mg PO QAM glipizide 5 mg tablet 5 mg PO QAM lisinopril 20 mg tablet 20 mg PO QAM metformin 1,000 mg tablet 1,000 mg PO BID multivitamin 1 tab PO QAM Take morning of surgery With a small sip of water, OTHERWISE NOTHING TO EAT OR DRINK AFTER MIDNIGHT: diltiazem HCl 240 mg capsule,24 hr,extended release 240 mg PO QAM omeprazole 20 mg capsule,delayed release 20 mg PO QAM Take evening before surgery calcium carb-Ca gluc 500 mg calcium-magnesium ox-Mg gluc 250 mg tablet (Calcium Magnesium) 1 tab PO HS gabapentin 100 mg capsule 100 mg PO HS metformin 1,000 mg tablet 1,000 mg PO BID rosuvastatin 10 mg tablet 10 mg PO HS gabapentin 300 mg capsule 600 mg PO HS Other Notes If you have any questions please call us at [phone] or [phone] or [phone] or [phone]
--- NOTE | 2023-02-25 08:30 | Anesthesiology Consultation ---
Date of Service February 25, 2023 Assessment & Plan (1) Encounter for pre-operative examination: Chart Review Chart Review: Acceptable Risk for Surgery (pending cardiac clearance and PCP clearance ) Awaiting cardiac clearance 02/25/23 ([facility]) Awaiting PCP clearance 02/26/23 (Dr. Guzmán- [facility]) - Check BSG AM DOS Per PAT appt on 02/25/23, patient denies any recent travel or large group activities. Pt is vaccinated for Covid. Will leave to surgeon's discretion if preop Covid testing needed. Educated on importance of using Covid precautions one week prior to surgery C5-C7 D&F 04/17/21= Done under [place] with Glidescope #4. Elective [place] x 1 atraumtic Teaching & Discussion Pre-Anesthesia Teaching/Discussion Notes: Instructed NPO after midnight before surgery,except medications with 15 cc of water. Medication instructions provided according to the PAT guidelines. History Surgery Operation Date: 03/18/23 07:45 Proposed Procedures p L3-S1 Decompression and Fusion, Spinal Cord Monitoring - John Sterling DO Height/Weight Height: 5 ft 9 in Weight: 112.7 kg Allergies Allergy/AdvReac Type Severity Reaction Status Date / Time No Known Allergies Allergy Verified 02/14/23 13:50 Medications Home Medications Medication Instructions Recorded Confirmed Last Taken ascorbic acid (vitamin C) 500 mg 500 mg PO QAM 03/30/21 02/14/23 04/16/21 04:45 tablet (Vitamin C) calcium carb-Ca gluc 500 mg 1 tab PO HS 03/30/21 02/14/23 04/16/21 18:00 calcium-magnesium ox-Mg gluc 250 mg tablet (Calcium Magnesium) diltiazem HCl 240 mg capsule,24 240 mg PO QAM 03/30/21 02/14/23 04/17/21 04:15 hr,extended release gabapentin 100 mg capsule 100 mg PO HS 03/30/21 02/14/23 04/16/21 18:00 glipizide 5 mg tablet 10 mg PO QAM 03/30/21 02/25/23 04/16/21 04:50 lisinopril 20 mg tablet 20 mg PO QAM 03/30/21 02/14/23 04/16/21 04:45 metformin 1,000 mg tablet 1,000 mg PO BID 03/30/21 02/14/23 04/16/21 04:45 multivitamin 1 tab PO QAM 03/30/21 02/14/23 04/16/21 04:45 omeprazole 20 mg capsule,delayed 20 mg PO QAM 03/30/21 02/14/23 04/17/21 04:15 release rosuvastatin 10 mg tablet 10 mg PO HS 03/30/21 02/14/23 04/16/21 18:00 gabapentin 300 mg capsule 600 mg PO HS 02/14/23 02/14/23 Unknown Past Medical History Medical History Diabetes mellitus, type 2 NIDDM Glucose well controlled per patient Fatty liver resolved per pt GERD (gastroesophageal reflux disease) Well controlled and stable History of COVID-19 08/2020 (congestion) > resolved Hyperlipidemia Hypertension Irregular heart beat Follows with [facility] Obesity PONV (postoperative nausea and vomiting) Restless leg syndrome Sleep apnea CPAP Spinal stenosis Exercise / Class Metabolic Activity II 4-5 Yardwork/Stairs/Walk up hill (one flight of stairs - no chest pain or SOB ) Past Family History Family History Mother Family history of diabetes mellitus Brother Family history of diabetes mellitus Other No family history of adverse response to anesthesia Past Surgical History Surgical History H/O shoulder surgery Right History of arthroscopy Left knee History of cervical spinal surgery History of cholecystectomy History of colonoscopy History of herniorrhaphy Inguinal History of surgery on arm Left bicep repair [place] teeth removed Past Anesthesia History No Hx of Anesthesia Complications (with exception to PONV ) and No Family Hx of Anesthesia Complications History of PONV No Hx of Motion Sickness and History of PONV (severe- no issues with neck surgery at [facility] in 2020) Social History Smoking Status: Never smoker Do You Dip or Chew Tobacco: No Hx Alcohol Use: No Hx Substance Use: No substance use type: does not use Review of Systems Patient denies chest pain, shortness of breath, dyspnea on exertion, cough, wheezing, palpitations. No hx of seizures, stroke, [place]. No hx of blood clots or blood transfusions Physical Exam Vital Signs VITALS BP 121/78 P 82 TEMP 97.7 SP02 95% RESP 16 Constitutional no acute distress ENMT Mouth: no TMJ clicking Thyromental Distance: > or= 3.5 Finger Breadths (3.5) Mallampati Class: II Crowns and caps to side teeth and molars Neck + limited neck extension (mild) Respiratory normal respiratory effort; no respiratory distress Auscultation: lungs clear to auscultation bilaterally; no wheezes Cardiovascular Rate/Rhythm: regular rate and regular rhythm Heart Sounds: no murmur Vessels: no carotid bruit Musculoskeletal Spine: + pain with cervical ROM (mild) Extremities: extremities normal to inspection Psychiatric Orientation: alert Lab Results Anesthesia Preop Results Results Anesthesia Widget: WBC 7.52 K/ul (4.8-10.8) 02/25/23 Hgb 15.6 g/dl (14.0-18.0) 02/25/23 Hct 44.8 % (42.0-52.0) 02/25/23 Plt 240 K/uL (130-400) 02/25/23 Na 136 mmol/L (136-145) 02/25/23 K 4.6 mmol/L (3.5-5.1) 02/25/23 Cl 101 mmol/L (98-107) 02/25/23 CO2 26 mmol/L (21-32) 02/25/23 BUN 16 mg/dl (6-23) 02/25/23 Creat 0.99 mg/dl (0.6-1.4) 02/25/23 Glucose Level 260 mg/dl (70-99(Fasting)) H 02/25/23 PT 10.5 Seconds (9.0-12.0) 02/25/23 PTT 27.1 Seconds (21.0-31.0) 02/25/23 INR 1.0 (0.9-1.1) 02/25/23 HA1c 6.7 % (4.5-5.6) H 02/25/23 Urine Color Dark Yellow 02/25/23 Urine Appearance Clear (Clear) 02/25/23 Urine pH 6.0 (4.5-7.5) 02/25/23 Urine Specific [place] 1.027 (1.000-1.030) 02/25/23 Urine Protein Negative (Negative) 02/25/23 Urine Glucose (UA) 3+ (Negative) H 02/25/23 Urine Ketones 1+ (Negative) H 02/25/23 Urine Blood Negative (Negative) 02/25/23 Urine Nitrite Negative (Negative) 02/25/23 Urine Bilirubin Negative (Negative) 02/25/23 Urine Urobilinogen Negative (Negative) 02/25/23 Urine Leukocyte Esterase Negative (Negative) 02/25/23 Blood Type B Positive 02/25/23 Antibody Screen NEGATIVE 02/25/23 Testing Electrocardiogram Date: 02/25/23 Findings: + NSR @ (81bpm ) Normal EKG per cardio Chest X-Ray Date: 02/25/23 Findings: + NAD Echocardiogram Date: 11/26/19 EF: 60% LV Function: normal RWMA: + none Other Findings: + LVH (Borderline) and + diastolic dysfunction (Grade 1) Valvular Disease: + no significant valvular disease Mild right left atrial enlargement Mild right ventricular enlargement Normal pulmonary artery pressures Stress Test Date: 11/26/19 Type: nuclear Based upon EKG criteria, this test is negative Based upon the nuclear imaging findings there is a mild inferior wall ischemia Study is abnormal. It has changed from previous studies. (Cardio reviewed stress testprefers medical management for now per 01/12/2020 cardiology note- pt denies any current issues)
[~2023-03-18 07:27] MED LIST: ACETAMINOPHEN 500 MG TAB PO SCH; CeleBREX 200 MG CAP PO SCH; GABAPENTIN 600 MG DOSE PO SCH; LR 15ML/HR IV SCH; ceFAZolin 2000MG 2,000 MG/15 ML SYR IV SCH
--- NOTE | 2023-03-18 08:51 | History & Physical Bridge Note ---
Date of Service March 18, 2023 History & Physical Bridge Note I have examined the patient, reviewed the History & Physical and in the interval since the performance of the History & Physical I have noted the following changes of clinical significance: no changes noted
--- NOTE | 2023-03-18 08:52 | History & Physical Report ---
Date of Service March 18, 2023 Assessment & Plan (1) Neurogenic claudication due to lumbar spinal stenosis: Plan: L3-S1 decompression and fusion History of Present Illness Chief Complaint: Back and bilateral leg pain Primary Care Provider: Jame Guzmán This is a 57-year-old female who presents with chronic persistent back and bilateral knee pain after failing course of nonoperative care she is here for surgical intervention. Allergies Allergy/AdvReac Type Severity Reaction Status Date / Time No Known Allergies Allergy Verified 03/18/23 08:06 Home Medications Medication Instructions Recorded Confirmed Type ascorbic acid (vitamin C) 500 mg 500 mg PO QAM 03/30/21 03/18/23 History tablet (Vitamin C) calcium carb-Ca gluc 500 mg 1 tab PO HS 03/30/21 03/18/23 History calcium-magnesium ox-Mg gluc 250 mg tablet (Calcium Magnesium) diltiazem HCl 240 mg capsule,24 240 mg PO QAM 03/30/21 03/18/23 History hr,extended release gabapentin 100 mg capsule 100 mg PO HS 03/30/21 03/18/23 History glipizide 5 mg tablet 10 mg PO QAM 03/30/21 03/18/23 History lisinopril 20 mg tablet 20 mg PO QAM 03/30/21 03/18/23 History metformin 1,000 mg tablet 1,000 mg PO BID 03/30/21 03/18/23 History multivitamin 1 tab PO QAM 03/30/21 03/18/23 History omeprazole 20 mg capsule,delayed 20 mg PO QAM 03/30/21 03/18/23 History release rosuvastatin 10 mg tablet 10 mg PO HS 03/30/21 03/18/23 History gabapentin 300 mg capsule 600 mg PO HS 02/14/23 03/18/23 History Past Med/Surg History Medical History Diabetes mellitus, type 2 NIDDM Glucose well controlled per patient Fatty liver resolved per pt GERD (gastroesophageal reflux disease) Well controlled and stable History of COVID-19 08/2020 (congestion) > resolved Hyperlipidemia Hypertension Irregular heart beat Follows with [facility] Obesity PONV (postoperative nausea and vomiting) Restless leg syndrome Sleep apnea CPAP Spinal stenosis Surgical History H/O shoulder surgery Right History of arthroscopy Left knee History of cervical spinal surgery History of cholecystectomy History of colonoscopy History of herniorrhaphy Inguinal History of surgery on arm Left bicep repair [place] teeth removed Family History Mother Family history of diabetes mellitus Brother Family history of diabetes mellitus Other No family history of adverse response to anesthesia Social History Smoking Status: Never smoker Second Hand Exposure: No; Do You Dip or Chew Tobacco: No; Hx Alcohol Use: No Hx Substance Use: No Preferred Language: [place] Leonean Communication Ability: Effective Project Landscape Architect Required: No Beliefs That Will Affect Care: None marital status: Current Living Situation: Spouse Feels Safe at Home: Yes Safety Concerns: Feels Safe At This Time Assistive Devices: Glasses Physical Exam Physical Exam: Patient is alert and oriented Heart regular rhythm Lungs clear Results & Data Results & Data Vital Signs (Past 12 Hours) Vital Signs Temp Pulse Resp BP Pulse Ox O2 Del Method 03/18/23 08:01 36.6 C 82 20 109/79 95 Room Air
[2023-03-18] MEDS ORDERED: ceFAZolin 330 MG/ML 1 GM VIAL ONE (09:02)
[2023-03-18] MEDS ORDERED: BUPIVACAINE/EPINEPHRINE 0.25% 1:200,000 30 ML VIAL ONE (09:02)
[2023-03-18] MEDS ORDERED: ONDANSETRON INJ 2 MG/ML 2 ML VIAL ONE (09:10)
[2023-03-18] MEDS ORDERED: ROCURONIUM BROMIDE 10 MG/ML 5 ML VIAL IV ONE (09:10)
[2023-03-18] MEDS ORDERED: fentaNYL citrate PF 100 MCG/2 ML VIAL ONE (09:10)
[2023-03-18] MEDS ORDERED: MIDAZOLAM HCL 1 MG/ML 2ML VIAL ONE (09:10)
[2023-03-18] MEDS ORDERED: PROPOFOL IV EMULSION 10 MG/ML 20 ML VIAL IV ONE (09:10)
[2023-03-18] MEDS ORDERED: DEXAMETHASONE SOD INJ 4 MG/ML VIAL ONE ×2 (09:10→10:40)
[2023-03-18] MEDS ORDERED: LIDOCAINE 2% 2 ML VIAL/AMP(20MG/ML) INFIL ONE (09:10)
[2023-03-18] MEDS ORDERED: SUGAMMADEX SODIUM 200 MG/2 ML VIAL IV ONE (09:11)
[2023-03-18] MEDS ORDERED: ATROPINE SULFATE 0.1 MG/ML 10ML SYR IV PRN (09:13)
[2023-03-18] MEDS ORDERED: ePHEDrine sulfate 50 MG/ML AMP IV PRN (09:13)
[2023-03-18] MEDS ORDERED: HYDROmorphone INJ 2 MG/ML SYR/VIAL IV PRN (09:13)
[2023-03-18] MEDS ORDERED: ONDANSETRON INJ 2 MG/ML 2 ML VIAL IV PRN ×2 (09:13→14:08)
[2023-03-18] MEDS ORDERED: PROMETHAZINE HCL 12.5 MG in SODIUM CHLORIDE 0.9% 50 ML IV PRN ×2 (09:13→14:08)
[2023-03-18] MEDS ORDERED: SCOPOLAMINE 1 MG TDSY TD ONE ×2 (09:22→09:23)
[2023-03-18] MEDS ORDERED: FLOSEAL HEMOSTATIC MATRIX 10ML TOP ONE (10:23)
[2023-03-18] MEDS ORDERED: SURGICEL ABSORB HEMOSTAT 2IN X 14IN TOP ONE (11:33)
--- NOTE | 2023-03-18 11:54 | Operative Report ---
Post Operative Report Pre & Post Diagnosis Operation Date: 03/18/23 09:05 Pre-Op Diagnosis: Neurogenic Claudication due to Lumbar Spinal Stenosis Obesity Post-Op Diagnosis: Same I identified the patient and participated in the time-out.: Yes Procedure Operation Date: 03/18/23 09:05 Actual Procedures #1 lumbar decompression bilateral facetectomies and foraminotomies L2-3, L3-L4, L4-5 and L5-S1. #2 posterior spinal fusion L3-S1. #3 placement posterior segmental instrumentation L3-S1. #4 interbody fusion L3-L4 L5-S1. #5 placement Spira 15 x 26 mm at L3-L4 and 13 x 26 mm L5-S1. #6 placement locally harvested morselized autograft in the posterior gutters. #7 placement of I factor plan of the test and interbody space and posterior gutters. Surgeon John Sterling, DO Strip Machine Tender Romy Carey Estimated Blood Loss 400 Findings See Below The patient is 5 foot 9 weighing over 110 kg with a BMI in excess of 36. Patient's body habitus did contribute to significant technical difficulty required deepest retractors and longer instruments in order to perform his procedure. This at least 50% increased operative time. Specimens None Indications This is a 57-year-old male who presents above-mentioned diagnosis and failing course of nonoperative care is here for surgical invention. Description of Procedure Patient was met with identified informed consent obtained. Patient was then taken to the operative suite underwent a patient placed in a prone position jacks table top Adiel frame. All bony prominences well-padded eyes inspected to ensure no external pressure placed upon the. This point lumbar spine was prepped and draped in a sterile fashion. Sharp dissection with the assistance of Bovie cautery to form down to and exposing the lamina and transverse processes of L3-L4-L5 and the sacral ala bilaterally. From caudal cephalad fashion complete laminectomy of L5 L4 L3 partial laminectomy of L2 was performed including bilateral medial facetectomies and foraminotomies addressing severe spinal stenosis. Pedicle screws were then placed in the L3-L4-L5 and S1 levels bilaterally with assistance of fluoroscopy and appropriate sized leighton placed. Bilateral transforaminal approach on the right complete discectomy of L5-S1 was performed endplates curetted to subcortical bleeding bone and a 13 x 26 mm Spira cage with I factor tapped in position. Then proceeded to L3-L4 and again by way of a transforaminal approach on the right complete discectomy performed endplates curetted to subcortical bleeding bone and a 15 x 26 mm Spira cage with I factor tapped in position. The rods were then locked in final position bilaterally. The transverse processes of L3 3 L4-L5 and sacral ala burred to subcortically bone. I factor bone of the test and locally harvested morselized graft was placed in the posterior gutters. 15 round MAYI drain inserted. The incision was then closed with 1 Vicryl the fascia 2-0 Vicryl subcutaneously and 4 Monocryl for final skin closure. Steri-Strips sterile dressings placed. Patient waken taken to PACU stable condition. Please note spinal cord monitoring was utilized at the procedure no changes noted. Lastly Romy Carey was present at the entire surgery involved in patient positioning complex porti on of the surgery and final skin closure. I attest to the content of the Intraoperative Record and any orders documented therein. Any exceptions are noted below.
--- NOTE | 2023-03-18 12:15 | Fluoroscopy Report ---
FL lumbar spine 2-3V CLINICAL HISTORY: L3-S1 DECOMPRESSION AND FUSION COMPARISON STUDY: None. FLUOROSCOPY TIME: 35 seconds FLUOROSCOPY IMAGES: 2 Ka,r: 29.9 mGy FINDINGS: Posterior decompression fusion from L3 through S1 with pedicle screws and rods. The hardwar e appears intact. Disc spacers are in place. IMPRESSION: Fluoroscopic assistance as above. ACT 112: Negative or not required by law. Electronically signed by: Dhaval Mata M.D. 03/18/2023 12:14 PM
[2023-03-18] MEDS: fentaNYL citrate PF 100 MCG/2 ML VIAL IV PRN ×2 (12:41→13:07)
--- NOTE | 2023-03-18 14:04 | Anesthesiology Progress Note ---
Date of Service March 18, 2023 Anesthesia Post Procedure Vital Signs Vital Signs: Temp Pulse Pulse Resp BP Pulse Ox O2 Del Method 03/18/23 13:44 36.8 C 85 18 113/74 95 Nasal Cannula 03/18/23 13:25 87 16 120/65 95 Nasal Cannula 03/18/23 13:15 83 16 113/61 95 Nasal Cannula 03/18/23 13:05 87 19 107/65 94 Nasal Cannula 03/18/23 12:55 78 17 114/63 94 Nasal Cannula 03/18/23 12:45 76 17 109/64 93 Nasal Cannula 03/18/23 12:35 77 21 120/69 98 Oxymask 03/18/23 12:25 82 21 110/60 98 Oxymask 03/18/23 12:15 76 20 115/57 L 96 Oxymask 03/18/23 12:14 36.4 C L 86 22 108/58 L 96 Oxymask 03/18/23 08:01 36.6 C 82 20 109/79 95 Room Air O2 Flow Rate 03/18/23 13:44 2 03/18/23 13:25 2 03/18/23 13:15 3 03/18/23 13:05 3 03/18/23 12:55 3 03/18/23 12:45 3 03/18/23 12:35 8 03/18/23 12:25 8 03/18/23 12:15 12 03/18/23 12:14 12 03/18/23 08:01 Pain Intensity Right Foot: Pain Intensity: 4 Back: Pain Intensity: 4 Transfer of Care Handoff Completed per policy Notes Mental Status: alert / awake / arousable and participated in evaluation Patient Amnestic to Procedure: Yes Nausea / Vomiting: adequately controlled Pain: adequately controlled Airway Patency, RR, SpO2: stable & adequate BP & HR: stable & adequate Hydration State: stable & adequate Anesthetic Complications: no major complications apparent
[2023-03-18] MEDS ORDERED: LORazepam 2 MG/1 ML VIAL IV PRN (14:08)
[2023-03-18] MEDS ORDERED: traMADol HCL 50 MG TABLET PO PRN (14:08)
[2023-03-18] MEDS ORDERED: HYDROmorphone INJ 1 MG/ML SYRINGE IV PRN (14:08)
[2023-03-18] MEDS ORDERED: MAGNESIUM HYDROXIDE SUSP 30 ML UDC PO PRN (14:08)
[2023-03-18] MEDS ORDERED: PHARMACY GLYCEMIC MGMT CONSULT PRN (14:08)
[2023-03-18] MEDS ORDERED: bisacodyL 10 MG SUPP PR PRN (14:08)
[2023-03-18] MEDS ORDERED: LORazepam 0.5 MG TAB PO PRN (14:08)
[2023-03-18] MEDS ORDERED: DO NOT ADMINISTER PNEUMOCOCCAL VACCINE PRN (14:08)
[2023-03-18] MEDS ORDERED: NALOXONE HCL 0.4 MG/1 ML VIAL/CARP IV PRN (14:08)
[2023-03-18] MEDS ORDERED: ONDANSETRON 4 MG OD TAB PO PRN (14:08)
[2023-03-18] MEDS ORDERED: hydrOXYzine HCl 25 MG TAB PO PRN (14:08)
[2023-03-18] MEDS ORDERED: METOCLOPRAMIDE HCL INJ 5 MG/ML 2 ML VIAL IV PRN (14:08)
[2023-03-18] MEDS ORDERED: ACETAMINOPHEN 500 MG TAB PO PRN (14:08)
[2023-03-18] MEDS ORDERED: SOD PHOSPHATE/SOD BIPHOSPHATE ENEMA 132 ML BTL PR PRN (14:08)
[2023-03-18] MEDS ORDERED: ALUMINUM/MAGNESIUM SUSP 30 ML UDC PO PRN (14:08)
[2023-03-18] MEDS ORDERED: FAMOTIDINE 20 MG TAB PO PRN (14:08)
[2023-03-18] MEDS ORDERED: ACETAMINOPHEN 1,000 MG/100 ML VIAL IV PRN (14:08)
[2023-03-18] MEDS ORDERED: DO NOT ADMINISTER FLU VACCINE PRN (14:08)
[2023-03-18] MEDS ORDERED: HYDROmorphone INJ 0.5 MG/0.5 ML SYR IV PRN (14:08)
[2023-03-18] MEDS ORDERED: GLUCOSE 40% GEL 15 GM TUBE PO PRN (14:45)
[2023-03-18] MEDS ORDERED: CARBOHYDRATES FOR HYPOGLYCEMIA PO PRN (14:45)
[2023-03-18] MEDS ORDERED: GLUCOSE 10 TAB/TUBE PO PRN (14:45)
[2023-03-18] MEDS ORDERED: GLUCAGON FOR INJ 1 MG VIAL IM PRN (14:45)
[2023-03-18] MEDS ORDERED: DEXTROSE 50% 50 ML SYRINGE IV PRN (14:45)
--- NOTE | 2023-03-18 14:45 | Pharmacy Report ---
Pharmacy Glycemic Short Note 2 - Date of Service March 18, 2023 - Glycemic Short BSG Results (Last 24 hours): 03/18/23 03/18/23 08:08 12:22 POC Glucose 137 H 184 H OUTPATIENT ANTIDIABETIC REGIMEN: * Glipizide 10mg PO qAM * Metformin 1gm PO BID * HbA1c: 6.7% (02/25/23) ASSESSMENT: * Mr Corbett is a 57yo diabetic male who is POD 0 s/p lumbar procedure with Dr Sterling this morning. * Pt appears to have received IV dexamethasone preoperatively, which is expected to lead to steroid-induced hyperglycemia. * Oral DM meds held on admission, until pt is tolerating diet, and pt was initiated on SQ basal/bolus insulin. * Post-op, pt reports nausea and is quite drowsy. Unsure when diet will be resumed. BSG >180mg/dL post-op. * Pharmacy will continue to follow and adjust regimen as indicated. PLAN FOR INPATIENT GLYCEMIC CONTROL: * Hold outpatient oral diabetes medications * Basal insulin * Lantus 20 units SQ x1 dose this evening * Bolus insulin * NovoLog per scale ACHS or Q6hrs while NPO * Goal Range: Low 110 mg/dL - High 140 mg/dL * Correction Factor: 25 mg/dL/unit * Nutritional / Prandial insulin per carb ratio of 1 unit per 8 grams CHO consumed
[2023-03-18] MEDS: SODIUM CHLORIDE 0.9% 1000ML 1,000 ML IV SCH ×2 (15:15→21:53)
[2023-03-18] MEDS: CHECK SCOPOLAMINE PATCH PLACEMENT SCH ×2 (15:15→23:22)
[2023-03-18] MEDS: oxyCODONE HCL IR 5 MG TAB (IMMEDIATE RELEASE) PO PRN ×2 (16:14→20:19)
[2023-03-18] MEDS ORDERED: LANTUS PER UNIT CHARGE SC ONE (16:30)
[2023-03-18] MEDS: INSULIN ASPART PER UNIT CHARGE SC SCH ×2 (17:37→21:54)
[2023-03-18] MEDS: ceFAZolin 2000MG 2,000 MG/15 ML SYR IV SCH (17:46)
[2023-03-18] MEDS: GABAPENTIN 100 MG CAP PO SCH (20:04)
[2023-03-18] MEDS: GABAPENTIN 600 MG TAB PO SCH (20:04)
[2023-03-18] MEDS: DOCUSATE SODIUM/SENNA 50/8.6MG TAB PO SCH (20:04)
[2023-03-18] MEDS: ROSUVASTATIN CALCIUM 10 MG TAB PO SCH (20:04)
[2023-03-18] MEDS ORDERED: NON-FORMULARY MEDICATION (Ca Carb-Ca Gluc-Mg Ox-Mg Gluco [Calcium Magnesium] 500 mg calciu PO SCH (21:00)
[2023-03-19] MEDS: oxyCODONE HCL IR 5 MG TAB (IMMEDIATE RELEASE) PO PRN ×6 (00:26→23:05)
[2023-03-19] MEDS: ceFAZolin 2000MG 2,000 MG/15 ML SYR IV SCH (01:06)
[2023-03-19] MEDS: diphenhydrAMINE Capsule 25 MG CAP PO PRN (03:44)
[2023-03-19] MEDS: SODIUM CHLORIDE 0.9% 1000ML 1,000 ML IV SCH (05:34)
[2023-03-19] MEDS: POLYETHYLENE (MIRALAX) 17 GM PACK PO SCH ×4 (05:46→23:05)
[2023-03-19 06:18] LABS: Basophils # (auto) 0.02 K/uL (0-0.2); Basophils % (auto) 0.1 %; Hematocrit (blood only) 37.6 % (42.0-52.0); Hemoglobin 13.1 g/dl (14.0-18.0); Immature Granulocytes # (auto) 0.08 K/uL (0.01-0.20); Immature Granulocytes % (auto) 0.4 %; Lymphocytes # (auto) 1.17 K/uL (1.2-3.4); Lymphocytes % (auto) 6.4 %; Mean Corpuscular Hemoglobin 30.8 pg (25.0-34.0); Mean Corpuscular Hgb Conc 34.8 g/dL (32.0-36.0); Mean Corpuscular Volume 88.5 fL (80.0-100.0); Mean Platelet Volume 9.5 fL (9.4-12.4); Monocytes # (auto) 1.28 K/uL (0.11-0.59); Neutrophils # (auto) 15.74 K/uL (1.40-6.50); Neutrophils % (auto) 86.1 %; Platelet Count 246 K/uL (130-400); RDW Standard Deviation 38.6 fL (36.4-46.3); Red Blood Count 4.25 M/uL (4.70-6.10); White Blood Count 18.29 K/ul (4.8-10.8)
[2023-03-19 06:45] LABS: BUN Creatinine Ratio 19.4 (10-20); Calcium 8.9 mg/dl (8.6-10.3); Creatinine Clr Calc Pharmacy 104.8 ml/min; Est GFR (African American) 103.8 ml/min; Est GFR (Non-African American) 89.5 ml/min; Potassium 4.4 mmol/L (3.5-5.1)
[2023-03-19] MEDS ORDERED: glipiZIDE 5 MG TAB PO SCH (09:00)
[2023-03-19] MEDS: INSULIN ASPART PER UNIT CHARGE SC SCH ×4 (09:04→22:11)
[2023-03-19] MEDS: LANTUS PER UNIT CHARGE SC SCH (09:04)
[2023-03-19] MEDS: MULTIVITAMIN TAB PO SCH (09:05)
[2023-03-19] MEDS: PANTOprazole 40 MG TAB PO SCH (09:05)
[2023-03-19] MEDS: lisinopril 20 MG TAB PO SCH (09:05)
[2023-03-19] MEDS: CHECK SCOPOLAMINE PATCH PLACEMENT SCH ×2 (09:06→18:10)
[2023-03-19] MEDS: ASCORBIC ACID 500 MG TAB PO SCH (09:06)
[2023-03-19] MEDS: dexAMETHasone 8 MG in SYRINGE 0 ML IV SCH (09:06)
[2023-03-19] MEDS: dilTIAZem HCL 240 MG CAPCR PO SCH (09:06)
--- NOTE | 2023-03-19 10:15 | Orthopedic Progress Note ---
Date of Service March 19, 2023 Assessment & Plan (1) Neurogenic claudication due to lumbar spinal stenosis: Plan: At this time we will continue physical therapy monitor his MAYI operatively discharge home in the next few days. Admission and Anticipated Discharge Date Admission Date: March 18, 2023 Subjective Back pain controlled leg symptoms improved Physical Exam Physical Exam: Patient is constricted testing peers comfortable. Results & Data Vital Signs (Past 12 Hours) Vital Signs Temp Pulse Resp BP BP Pulse Ox O2 Del Method 03/19/23 07:43 36.8 C 86 18 115/76 94 Room Air 03/19/23 03:55 36.8 C 90 16 121/74 94 Room Air, Nasal CPAP 03/19/23 00:39 37.1 C 75 16 104/60 93 Room Air
[2023-03-19] MEDS ORDERED: PHARMACY GLYCEMIC MGMT CONSULT PRN (10:19)
[2023-03-19] MEDS ORDERED: COUGH DROP (SUGAR FREE) LOZ 24 LOZ/1 BOX BUCCAL PRN (12:40)
--- NOTE | 2023-03-19 17:55 | Hospitalist Consultation ---
Date of Consultation March 19, 2023 Assessment & Plan (1) Type 2 diabetes mellitus: [id number] diabetes mellitus type 2 Takes metformin and glipizide at home which have been held here and the patient has been started on a sliding scale insulin. Diabetic diet (2) Hypertension, essential: Blood pressure well controlled at this time On lisinopril Creatinine stable postoperatively (3) Hyperlipidemia: On rosuvastatin. Continue (4) Sleep apnea: Uses CPAP at night (5) Herniation of cervical intervertebral disc with radiculopathy: Had cervical surgery in March 2021 (6) Neurogenic claudication due to lumbar spinal stenosis: Postoperative management per orthospine team Pain management per primary team History of Present Illness Reason for Consultation: Medical management Requesting Physician: John Sterling Attending Physician: John Sterling DO History of Present Illness This is a 57-year-old male who underwent lumbar fusion surgery on 03/18. I have been consulted for postoperative management. The patient is doing well overall today. He denies any chest pain, shortness of breath, headache, dizziness. He does have some postoperative pain which is expected. He also has not had a bowel movement and thus has a low appetite. Other than that, he does not have any major complaints. He says that he has walked around the hallway 8 times today. Allergies Allergy/AdvReac Type Severity Reaction Status Date / Time No Known Allergies Allergy Verified 03/18/23 08:06 Home Medications Medication Instructions Recorded Confirmed Type ascorbic acid (vitamin C) 500 mg 500 mg PO QAM 03/30/21 03/18/23 History tablet (Vitamin C) calcium carb-Ca gluc 500 mg 1 tab PO HS 03/30/21 03/18/23 History calcium-magnesium ox-Mg gluc 250 mg tablet (Calcium Magnesium) diltiazem HCl 240 mg capsule,24 240 mg PO QAM 03/30/21 03/18/23 History hr,extended release gabapentin 100 mg capsule 100 mg PO HS 03/30/21 03/18/23 History glipizide 5 mg tablet 10 mg PO QAM 03/30/21 03/18/23 History lisinopril 20 mg tablet 20 mg PO QAM 03/30/21 03/18/23 History metformin 1,000 mg tablet 1,000 mg PO BID 03/30/21 03/18/23 History multivitamin 1 tab PO QAM 03/30/21 03/18/23 History omeprazole 20 mg capsule,delayed 20 mg PO QAM 03/30/21 03/18/23 History release rosuvastatin 10 mg tablet 10 mg PO HS 03/30/21 03/18/23 History gabapentin 300 mg capsule 600 mg PO HS 02/14/23 03/18/23 History oxycodone 5 mg tablet 5 mg PO Q6H PRN pain #30 tabs 03/18/23 Rx tramadol 50 mg tablet 50 mg PO Q6H PRN pain, moderate 03/18/23 Rx #30 tabs Patient History Medical History Diabetes mellitus, type 2 NIDDM Glucose well controlled per patient Fatty liver resolved per pt GERD (gastroesophageal reflux disease) Well controlled and stable History of COVID-19 08/2020 (congestion) > resolved Hyperlipidemia Hypertension Irregular heart beat Follows with [facility] Obesity PONV (postoperative nausea and vomiting) Restless leg syndrome Sleep apnea CPAP Spinal stenosis Surgical History H/O shoulder surgery Right History of arthroscopy Left knee History of cervical spinal surgery History of cholecystectomy History of colonoscopy History of herniorrhaphy Inguinal History of surgery on arm Left bicep repair [place] teeth removed Family History Mother Family history of diabetes mellitus Brother Family history of diabetes mellitus Other No family history of adverse response to anesthesia Social History Smoking Status: Never smoker Second Hand Exposure: No; Do You Dip or Chew Tobacco: No; Hx Alcohol Use: No Hx Substance Use: No Preferred Language: Estonian Communication Ability: Effective 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 Normal effort Abdomen: Soft/nontender/nondistended. No hepatosplenomegaly Extremities: No clubbing/cyanosis. No edema Behavior: Appropriate, cooperative Results & Data Results & Data Vital Signs (Past 12 Hours) Vital Signs Temp Pulse Resp BP Pulse Ox O2 Del Method 03/19/23 15:23 37.3 C 95 H 18 107/76 92 Room Air 03/19/23 11:34 36.7 C 88 18 131/85 93 Room Air 03/19/23 07:43 36.8 C 86 18 115/76 94 Room Air Laboratory Results Abnormal lab results 03/18/23 03/19/23 03/19/23 Range/Units 21:02 05:52 05:52 WBC 18.29 H (4.8-10.8) K/ul RBC 4.25 L (4.70-6.10) M/uL Hgb 13.1 L (14.0-18.0) g/dl Hct 37.6 L (42.0-52.0) % Neut # (Auto) 15.74 H (1.40-6.50) K/uL Lymph # (Auto) 1.17 L (1.2-3.4) K/uL Bent # (Auto) 1.28 H (0.11-0.59) K/uL Sodium 135 L (136-145) mmol/L Glucose 182 H (70-99(Fasting)) mg/dl POC Glucose 221 H (70-99) mg/dl 03/19/23 03/19/23 03/19/23 Range/Units 08:14 12:11 17:16 WBC (4.8-10.8) K/ul RBC (4.70-6.10) M/uL Hgb (14.0-18.0) g/dl Hct (42.0-52.0) % Neut # (Auto) (1.40-6.50) K/uL Lymph # (Auto) (1.2-3.4) K/uL Bent # (Auto) (0.11-0.59) K/uL Sodium (136-145) mmol/L Glucose (70-99(Fasting)) mg/dl POC Glucose 197 H 170 H 232 H (70-99) mg/dl PG Care Time/CCT Total # of Minutes Spent Total Time Spent with Patient: Total time spent is greater than 50% in coordination of care (as documented) at patient's floor/unit and/or counseling patient: Coding Level of Care Code 77298 IN/OBS CONSULT LVL 3,45M Diagnoses Type 2 diabetes mellitus E11.9 Hypertension, essential I10 Hyperlipidemia E78.5 Sleep apnea G47.30 Herniation of cervical intervertebral disc with radiculopathy M50.10 Neurogenic claudication due to lumbar spinal stenosis M48.062
[2023-03-19] MEDS: GABAPENTIN 600 MG TAB PO SCH (20:37)
[2023-03-19] MEDS: GABAPENTIN 100 MG CAP PO SCH (20:37)
[2023-03-19] MEDS: DOCUSATE SODIUM/SENNA 50/8.6MG TAB PO SCH (20:37)
[2023-03-19] MEDS: ROSUVASTATIN CALCIUM 10 MG TAB PO SCH (20:38)
[2023-03-20] MEDS: CHECK SCOPOLAMINE PATCH PLACEMENT SCH ×2 (00:18→08:00)
[2023-03-20] MEDS: oxyCODONE HCL IR 5 MG TAB (IMMEDIATE RELEASE) PO PRN ×3 (03:10→13:05)
[2023-03-20] MEDS: diphenhydrAMINE Capsule 25 MG CAP PO PRN (03:10)
[2023-03-20] MEDS: POLYETHYLENE (MIRALAX) 17 GM PACK PO SCH ×2 (05:23→12:50)
[2023-03-20] MEDS: dexAMETHasone 8 MG in SYRINGE 0 ML IV SCH (08:52)
[2023-03-20] MEDS: ASCORBIC ACID 500 MG TAB PO SCH (08:52)
[2023-03-20] MEDS: PANTOprazole 40 MG TAB PO SCH (08:52)
[2023-03-20] MEDS: MULTIVITAMIN TAB PO SCH (08:52)
[2023-03-20] MEDS: lisinopril 20 MG TAB PO SCH (08:52)
[2023-03-20] MEDS: dilTIAZem HCL 240 MG CAPCR PO SCH (08:52)
[2023-03-20] MEDS: LANTUS PER UNIT CHARGE SC SCH (08:54)
[2023-03-20] MEDS: INSULIN ASPART PER UNIT CHARGE SC SCH ×2 (08:55→12:49)
--- NOTE | 2023-03-20 12:28 | Discharge Summary ---
Date of Service March 20, 2023 Admission HPI Per Admitting Provider This is a 57-year-old female who presents with chronic persistent back and bilateral knee pain after failing course of nonoperative care she is here for surgical intervention. Principal Diagnosis Lumbar spinal stenosis with hernia nucleus pulposus and radiculopathy Discharge Data Allergies Allergy/AdvReac Type Severity Reaction Status Date / Time No Known Allergies Allergy Verified 03/18/23 08:06 Consultations 03/18/23 14:08 Consult Hospitalist Routine Procedures Performed Operation Date: 03/18/23 09:05 Actual Procedures p L3-S1 Decompression and Fusion, Spinal Cord Monitoring(Not Applicable) - John Sterling DO Ordered Studies 03/18/23 09:05 [place] lumbar spine 2-3V Routine Hospital Course (1) Neurogenic claudication due to lumbar spinal stenosis: Patient underwent lumbar decompression fusion tolerated as well as taken to orthopedic for postoperative. Postop day 1 is up and ambulating progress postop day #2. Good strength testing. MAYI drain decreasing probably. Pain well controlled. Subsidy discharged home. Discharge orders and instructions found in chart for further review. Total Time Total Time Spent Total Time Spent (In Minutes): 20 minutes Discharge Plan Discharge Items Patient Disposition: Home - Self-Care Reason For Visit: postop Discharge Diagnosis: Lumbar spinal stenosis with neurogenic claudication Activity: As commented below Non-emergency contact: Primary Care Provider Call non-emergency contact if: you have any medication questions Follow-up/Referrals: Jame Guzmán [Primary Care Provider] - Diet: Regular Addtl Attending Provider Instructions: ACTIVITY RECOMMENDATIONS: SELF CARE INSTRUCTIONS AFTER THORACIC/LUMBAR FUSIONS 1. You may walk to your tolerance. It is good exercise for your legs and back. Expect some back and intermittent leg aches and pains. 2. You may perform "counter-top" level activities (make a sandwich, franc[place] with a project, etc.). 3. No bending or lifting of more than 10 pounds or back twisting of any nature (roll like a log when turning in bed). 4. You may ride in a car for 20-30 minutes at a time. No driving until after your first visit with your doctor. 5. Frequent changes of position and restricting sitting to 30 minutes at a time will help limit the amount of back spasms and stiffness you may experience. 6. You may discontinue the use of ambulatory aids (cane, crutches, etc.) once your strength and confidence allow. 7. You may strategic sourcing consultant the shower and let water strike your incision when you arrive home at least once daily. Do not take a tub bath, sit in a hot tub or go into a swimming pool until after your first recheck in the office. SPECIAL CARE INSTRUCTIONS: VERY IMPORTANT TO READ AND REVIEW A. Your surgical incision has been closed with a cosmetic suture under the skin that will dissolve in about 6 weeks. In 14 days, you can use a pair of clean scissors and cut the suture that is left outside of the skin at the ends of your incision. 1. The small skin tapes can be removed 7 days after surgery if they have not fallen off by that point. 2. You may keep the wound open to air as much as possible to promote healing after post-op day number 5 unless told otherwise by your doctor. 3. If you think the wound looks like it is becoming infected (redness or worsening drainage) and/or you are experiencing fever, chill or worsening back pain and muscle spasms, contact the office so that we may evaluate you as soon as possible. B. Complications are uncommon, but please contact us if you have any signs or symptoms of: 1. wound infection (fever higher than 102.5 degrees F, redness, separation of wound, drainage, or increasing pain from the incision) 2. blood clots in legs (pain, swelling, redness and warmth in legs) 3. urinary tract infection (fever higher than 102.5 degrees F, burning upon urination or increased frequency of urination) 4. nerve problems (inability to walk on your toes or heels, numbness, loss of bowel or bladder control) 5. any other symptoms that concern you C. Please call the office at if you have any concerns or questions about your operation or recovery. D. No smoking! Smoking drastically decreases the chance of a solid fusion. E. Do not take any anti-inflammatory medications (Indocin, Advil, Motrin, Aspirin, Naprosyn, etc.) as these may inhibit the chance of a solid fusion. Tylenol is okay to take for pain. MANAGING PAIN AFTER SPINAL SURGERY 1. Narcotic medication is intended for short-term use and will be provided for surgical pain. Surgical pain usually lasts for a period of 4-6 weeks. Narcotic medication includes Percocet, Vicodin, Darvocet, Tylenol #3 or Lortab. 2. Longer-term pain is more appropriately treated with non-narcotic medication such as Tylenol ES. 3. Muscle spasm is not appropriately treated with narcotics. Muscle relaxers such as Soma, Flexeril or Skelaxin can be used along with Tylenol ES. 4. Remember that we all live with some "aches and pains". This is not unusual or uncommon after an injury or as we get older. a. Back pain is expected and may include muscle spasms for 4 to 6 weeks after surgery. The pain should gradually improve. If the pain worsens for no apparent reason, please contact the office. b. Intermittent leg pain may also be experienced and should not be concerned about unless it worsens for no apparent reason. If so, please contact the office. 5. We will provide appropriate medication within the normal guidelines of their prescribed use. We will also be very cautious and aware of potential abuse and extended duration of patients' medication needs. a. Pain medications are for your comfort and to assist with sleep and rest so that the tissue can heal. They are not provided in order to return to normal activity and should not be used through the day. To do so or worsening pain at night can result from ongoing tissue damage and development of tolerance to the prescribed medicine. 6. Please allow 2-3 days to process refills. Prescriptions will not be mailed but must be picked up at the office. FOLLOW UP VISIT: Keep your scheduled follow-up appointment. Any questions, please call the office at . Pending Studies at Discharge: No Stand-Alone Forms: My [facility] [employer], Smoking Cessation Medications and NC Order Prescriptions: New tramadol 50 mg tablet 50 mg PO Q6H PRN (Reason: pain, moderate) Qty: 30 0RF oxycodone 5 mg tablet 5 mg PO Q6H PRN (Reason: pain) Qty: 30 0RF Continued gabapentin 300 mg Capsule 600 mg PO HS multivitamin Tablet 1 tab PO QAM lisinopril 20 mg Tablet 20 mg PO QAM diltiazem HCl 240 mg Capsule,Extended Release 24 Hr 240 mg PO QAM ascorbic acid (vitamin C) [Vitamin C] 500 mg Tablet 500 mg PO QAM metformin 1,000 mg Tablet 1,000 mg PO BID omeprazole 20 mg Capsule,Delayed Release(Dr/Ec) 20 mg PO QAM gabapentin 100 mg Capsule 100 mg PO HS glipizide 5 mg Tablet 10 mg PO QAM rosuvastatin 10 mg Tablet 10 mg PO HS Calcium Magnesium 500 mg calcium -250 mg Tablet 1 tab PO HS Discharge Orders: Discharge Order (Routine); Ordered 03/20/23 Ordered By: John Sterling Admission Data Admit Date/Time: 03/18/23 12:02 Attending Provider: John Sterling Admit Provider: Jonh Sterling Primary Care Provider: Jame Guzmán Other Providers: Emil Burks
== END 2023-03-20 13:59 | disposition home or self-care (01) | DRG 455 ==
LOC: ASU 07:27 → 3E 12:02